=== PATIENT | female | born 1965 | race Caucasian/White ===

== ENCOUNTER → 2017-06-12 | Outpatient (CLI) | payer OTHER | LOC: BRMIMAGING 08:39 | PROVIDERS: ATTEND Family Medicine | DX: G89.18 Other acute postprocedural pain (principal); K76.0 Fatty (change of) liver, not elsewhere classified | CPT/HCPCS: 76705-PO ==

== ENCOUNTER 2017-08-20 11:53 | Inpatient (IN) | payer OTHER ==
[2017-08-20] MEDS ORDERED: ONDANSETRON 4 MG/2 ML VIAL IVP PRN (16:03)
[2017-08-20] MEDS ORDERED: PROMETHAZINE HCL 25 MG/ML INJ IVP PRN (16:03)
[2017-08-20] MEDS ORDERED: ONDANSETRON DISINTEGRATING 4 MG TAB PO PRN (16:03)
[2017-08-20] MEDS ORDERED: LORazepam 0.5 MG TAB PO PRN (16:03)
[2017-08-20] MEDS ORDERED: NS 1,000 ML IV SCH (16:15)
--- NOTE | 2017-08-20 17:29 | PDGENHP ---
History and Physical - Chief Complaint julieta - History of Present Illness 52 yo F with PMH of Grave's disease, copd versus RAD transferred here from [facility] where she was being worked up for JULIETA as well as new diagnosis of pna. Patient notes that she has been having issues with her health for about the last month. She was diagnosed as having "increased pressure" in her eyes and was started on prednisone eye drops and noted that since then she has been having pain in her hands, knees, thighs that she thought was related to the prednisone drops. Because of this she hastened her taper of prednisone, and was trying to taper it over one week instead of 2. She had been told by her opthomologist that the pressure had normalized at her last visit. Due to the pain in her eyes as well as her joints, she was taking ibuprofen up to 2400mg/ day for about the last 5 weeks. She also started valtrex for her eyes in the past several days. She also developed what she described as "hollowness" in her chest several days ago that was ultimately diagnosed as pneumonia yesterday and she was started on ctx/doxy at that time. She has been coughing a lot but not very productive overall. She has not had fever or chills. She has had an increase in her creatinine since admission at [facility] from 4.2 to > 5, and there is a plan for a renal biopsy. She has been making adequate urine. History Information - Allergies/Home Medication List Allergies/Adverse Reactions: erythromycin base [Erythromycin Base] Allergy (Intermediate, Verified 06/03/14 15:51) Vomiting Sulfa (Sulfonamide Antibiotics) Allergy (Intermediate, Verified 06/03/14 15:52) Hives Home Medications: Brimonidine/Timolol [Combigan (*)] 1 drop LEFTEYE BID 08/20/17 [Last Taken 08/20 10:00] Escitalopram Oxalate [Lexapro] 20 mg PO DAILY 08/20/17 [Last Taken 08/20/17] Levothyroxine Sodium [Tirosint] 150 mcg PO DAILY 08/20/17 [Last Taken 08/20/17] Vutk-Khko-Tvnn-Mag-Simet 5 ml PO QID PRN 08/20/17 [Last Taken 08/20/17] prednisoLONE ACET 1% [Pred Forte 1% (*)] 1 drops EACHEYE DAILY 08/20/17 [Last Taken 08/20/17 10:00] I have personally reviewed and updated: family history, medical history, social history, surgical history - Past Medical History COPD Additional medical history: grave's disease. hypothyroid - Surgical History Reports: cholecystectomy, spinal surgery (cervical fusion) Additional surgical history: breast reduction. liposuction - Family History Positive for: non-pertinent - Social History Smoking Status: Current some day smoker Alcohol Use: Occasionally Drug Use: None Additional social history: Review of Systems Review of Systems: ROS: 10pt was reviewed & negative except for what was stated in HPI & below Physical Exam Physical Exam: Temp Pulse Resp BP Pulse Ox 36.7 C 88 20 103/49 L 91 L 08/20/17 15:59 08/20/17 15:59 08/20/17 15:59 08/20/17 15:59 08/20/17 15:59 O2 (L/minute) 4 Constitutional: appears nourished, obese, uncomfortable Eyes: PERRL, anicteric sclera Ears, Nose, Mouth, Throat: moist mucous membranes, hearing normal Cardiovascular: regular rate and rhythym, no murmur, rub, or gallop, edema ( trace ble) Respiratory: expiratory wheeze, inspiratory crackles, bronchial breath sounds, rhonchi Gastrointestinal: normoactive bowel sounds, soft, non-tender abdomen Genitourinary: no bladder fullness Skin: warm, normal color Musculoskeletal: full muscle strength Neurologic: AAOx3 Psychiatric: interacting appropriately, not anxious, not encephalopathic Lab Data & Imaging Review Visualized and Interpreted Chest x-ray results: Yes Chest X-Ray results: infiltrate (bilateral nodular opacities--pna versus septic emobli versus metastatic dz) Assessment & Plan Assessment: 52 yo F presenting from OSH with JULIETA, not improving, as well as pna # julieta: with previously normal renal function, in setting of taking high doses of ibuprofen and valtrex and has been followed by nephrology both at [facility] and still here. They plan to get renal biopsy likely later this week. She does have protein/blood in urine. Urine output remains adequate. # increased ocular pressure: per patient thought to be due to viral illness, not due to glaucoma. Has been on a taper of opth prednisone, but tapering more quickly than she was supposed to. Eye symptoms have not recurred and she reports normalization of her ocular pressures prior to the taper. Will attempt to reach her opthamologist. # pna: patient with bilateral nodular pna on cxr, will get f/u ct for further evaluation, no culture data to guide therapy but will obtain further records from . CTX/azithro, sputum cultures, IS, nebs. # copd: without clear e/o acute exacerbation, will start scheduled nebs, prn albuterol # graves disease: patient reports recently normal TFT, will obtain records from [facility] to ensure this was checked # dispo: IP status, will need > 48 hours stay for eval/mgmt of above Patient new to my care. Old records reviewed and summarized as above. Care plan reviewed with renal including plans for likely biopsy this week.
[2017-08-20] MEDS ORDERED: ALBUTEROL 3 ML DEYVIAL IH PRN (17:35)
[2017-08-20] MEDS ORDERED: [UNRECOGNIZED DRUG - OTHER] PO PRN (17:35)
[2017-08-20] MEDS ORDERED: MBX SOLN 30 ML BOTTLE PO PRN (18:01)
[2017-08-20] MEDS: IPRATROPIUM/ALBUTEROL 3 ML DEYVIAL IH SCH ×2 (18:38→20:50)
[2017-08-20] MEDS: oxyCODONE IR 5 MG TAB PO PRN ×2 (20:23→23:47)
[2017-08-20] MEDS: HEPARIN 5,000 UNIT/0.5 ML SYR SC SCH (21:06)
[2017-08-20] MEDS: BRIMONIDINE/TIMOLOL 5 ML OPHT.BTL LEFTEYE SCH (21:07)
[2017-08-20] MEDS: ACETAMINOPHEN 325 MG TAB PO PRN (23:47)
[2017-08-21] MEDS: ACETAMINOPHEN 325 MG TAB PO PRN ×3 (04:50→13:36)
[2017-08-21] MEDS: oxyCODONE IR 5 MG TAB PO PRN ×3 (04:50→13:36)
[2017-08-21] MEDS: LEVOTHYROXINE SODIUM 150 MCG PO SCH (04:51)
[2017-08-21] MEDS: HEPARIN 5,000 UNIT/0.5 ML SYR SC SCH (04:52)
[2017-08-21 05:14] LABS: PLATELET COUNT 232 10^3/uL (150-400)
[2017-08-21] MEDS: IPRATROPIUM/ALBUTEROL 3 ML DEYVIAL IH SCH ×3 (05:42→17:36)
[2017-08-21] MEDS ORDERED: LEVOTHYROXINE 150 MCG TAB PO SCH (06:00)
[2017-08-21] MEDS: ESCITALOPRAM OXALATE 10 MG TAB PO SCH (08:56)
[2017-08-21] MEDS ORDERED: AZITHROMYCIN 250 MG TAB PO SCH (09:00)
[2017-08-21] MEDS ORDERED: AZITHROMYCIN IV 500 MG in D5W 250 ML IV SCH (09:00)
[2017-08-21] MEDS ORDERED: ENOXAPARIN 40 MG/0.4 ML SYR SC SCH (09:00)
--- NOTE | 2017-08-21 09:44 | PDMN ---
Medical Necessity Medical necessity: Patient meets INPT criteria per MD note and [facility] M-326 Renal Failure, Acute - (transferred from [facility] where she was being worked up for JULIETA and new onset pneumonia; Creat 5.7/BUN 73; elevated LFT's; had been on large doses of ibuprofen and valtrex x 5 weeks for joint pain and transitioning off prednisone for increased ocular pressure; anticipated LOS > 2 midnights for IV antibiotics, renal biopsy, further eval and treatment.)
--- NOTE | 2017-08-21 09:44 | PDMN ---
Medical Necessity Medical necessity: Patient meets INPT criteria per MD note and [facility] M-326 Renal Failure, Acute - (transferred from [facility] where she was being worked up for JULIETA and new onset pneumonia; Creat 5.7/BUN 73; elevated LFT's; had been on large doses of ibuprofen and valtrex x 5 weeks for joint pain and transitioning off prednisone for increased ocular pressure; anticipated LOS > 2 midnights for IV antibiotics, renal biopsy, further eval and treatment.)
--- NOTE | 2017-08-21 09:44 | PDMN ---
Medical Necessity Medical necessity: Patient meets INPT criteria per MD note and [facility] M-326 Renal Failure, Acute - (transferred from [facility] where she was being worked up for JULIETA and new onset pneumonia; Creat 5.7/BUN 73; elevated LFT's; had been on large doses of ibuprofen and valtrex x 5 weeks for joint pain and transitioning off prednisone for increased ocular pressure; anticipated LOS > 2 midnights for IV antibiotics, renal biopsy, further eval and treatment.)
[2017-08-21 10:47] LABS: HIV TYPE 1 AND 2 NEGATIVE (NEGATIVE)
--- NOTE | 2017-08-21 11:34 | SOAPPROG ---
SOAP Progress Note Assessment/Plan: Assessment: AKiI creatinine worsening proteinuria and hematuria increasing O2 requirements bilateral pulmonary infiltrates hemoptysis ANCA GBM ab and JAMIE are still pending, complements are normal, SPEP is negative Plan: Discussed with Pulm likely bronch and biopsy today if cant get tissue will proceed with kidney biopsy, counseled regarding riska and benefits, all questions answered per patient report she lost vision with steroid eye drops and will not take systemic steroids consider TPE will need temp HD cath 08/21/17 11:30 08/21/17 11:35 Subjective: feels pretty lousy today SOB worsening, no cp nausea or vomiting appetite not great last NSAIDS were SaturdayAug 17, was taking 800mg 4 times daily for several months Objective: Vital Signs Temp Pulse Resp BP Pulse Ox 36.5 C 78 18 119/63 93 08/21/17 07:49 08/21/17 07:49 08/21/17 05:44 08/21/17 07:49 08/21/17 07:49 Laboratory Results 08/21/17 04:43 08/21/17 04:43 08/20/17 08/21/17 08/22/17 05:59 05:59 05:59 Intake Total 1500 Balance 1500 - Time Spent With Patient Time Spent With Patient: 2.5 hours with patient and coordinating care - Pending Discharge Pending Discharge Within 24 Hours: No Pending Discharge Within 48 Hours: No Physical Exam - Physical Exam General Appearance: alert Respiratory: rales, rhonchi, wheezing, other (bilaterally) Cardiac/Chest: regular rate, rhythm, edema, No friction rub Abdomen: normal bowel sounds, non-tender, soft Skin: warm/dry, other (vasculitic looking lesion on left foot) Extremities: pedal edema Neuro/Psych: alert, oriented x 3
[2017-08-21] MEDS: BRIMONIDINE/TIMOLOL 5 ML OPHT.BTL LEFTEYE SCH (11:39)
[2017-08-21] MEDS: prednisoLONE ACET 1% 5 ML OPHT.BTL EACHEYE SCH (11:42)
--- NOTE | 2017-08-21 12:22 | ASMTCMCOM ---
CM Note CM Note Notes: Spoke w/RN, pt to have bronchoscopy and kidney biopsy today. Otherwise pt will be independent. Current DC Plan: Pt will dc home w/support of when medically stable, CM availble for any changes. Date Signed: 08/21/2017 12:22 PM Electronically Signed By:Radha Chahal RN
[2017-08-21] MEDS ORDERED: NS 1,200 ML IV SCH (12:24)
[2017-08-21] MEDS ORDERED: ALBUMIN 5% IV SCH (12:30)
[2017-08-21] MEDS ORDERED: SODIUM CITRATE 4% IV SCH ×2 (12:30)
[2017-08-21] MEDS ORDERED: NS IV SCH (13:00)
[2017-08-21] MEDS ORDERED: CALCIUM GLUCONATE IV SCH (13:00)
[2017-08-21] MEDS ORDERED: LIDOCAINE 2% JELLY 5 ML TUBE ONE ×2 (13:56→22:14)
[2017-08-21] MEDS ORDERED: LIDOCAINE 1% 300 MG/30 ML SDV ONE ×2 (13:56→22:14)
[2017-08-21] MEDS ORDERED: LIDOCAINE HCL 4% TOPICAL SOLN 50ML ONE (13:56)
[2017-08-21] MEDS ORDERED: MIDAZOLAM 2 MG/2 ML VIAL ONE (14:18)
[2017-08-21] MEDS ORDERED: fentaNYL 100 MCG/2 ML INJ ONE (14:19)
--- NOTE | 2017-08-21 15:08 | HOSPPROG ---
Hospitalist Progress Note Assessment/Plan: 52 yo F with PMH of Grave's disease, ? copd admitted here as a transfer from [facility] with JULIETA, anemia and pna versus other pulmonary process # julieta: with creatinine continuing to increase, initially attributed to nsaid use however given total lack of improvement and concurrent pna, anemia, generalized pain ? other process such as Clarice's. W/u at [facility] included spep, c3, c4, hep b/hep c ab which were all negative. Will add ANCA, JAMIE, anti- GBM, cryoglobulin, HIV here. Plan is for kidney biopsy likely today. Continue to renally dose meds, avoid nephrotoxins. No indication for HD at the moment. # pneumonia: with hemoptysis and unusual appearance on imaging, f/u CT yesterday personally reviewed and is notable for multilobar infiltrates. Discussed with pulmonary who will proceed with bronchoscopy today. Continue ctx/ azithro for now for possible multilobar CAP. # acute hypoxic respiratory failure: 2/2 above as well as likely atelectasis and difficulty clearing secretions, as above plan for bronch today, has required as much as 8L of o2 # anemia: continues to trend down and transfusing 2 u prbc today for hct < 21. Iron studies performed at [facility] notable for ferritin > 900 with slightly low iron and tibc. ? mixed picture but primarily appears more c/w anemia of chronic disease. Smear at [facility] was negative, and here showing elliptocytes but no schistos etc. # eye condition: unclear what the underlying condition was, per patient optho stated it was likely viral, she is on a opth pred taper, her eye pressures had normalized prior to beginning taper. Will attempt to reach her opthomologist. She has concerns about starting systemic steroids, but explained to her at length that her sxs are unlikely to be all to do with her opth steroid use and she seemed to understand this # hx of graves: with more recent hypothyroid, free t4 and tsh at [facility] were wnl, will continue op regimen # dispo: IP status, ultimate discharge is unclear at this time Discussed care plan with pulmonary as above. Subjective: no significant overnight events, patient currently feeling lousy, still with significant cough, coughing up scant amounts of blood, no fever, no change in urination Objective: Vital Signs Temp Pulse Resp BP Pulse Ox 36.3 C 88 18 101/57 L 93 11/01/17 13:12 08/21/17 14:25 08/21/17 14:25 08/21/17 13:12 08/21/17 14:25 Laboratory Results 08/21/17 04:43 08/21/17 04:43 08/20/17 08/21/17 08/22/17 05:59 05:59 05:59 Intake Total 1500 Balance 1500 awake alert ill appearing anicteric op clear rrr no mrg coarse bs, scattered rhonchi, scattered wheeze soft nt nd no cce warm dry well perfused oriented appropriate ICD10 Worksheet Patient Problems: Problems Problem Status Onset JULIETA (acute kidney injury) Acute
--- NOTE | 2017-08-21 15:08 | HOSPPROG ---
Hospitalist Progress Note Assessment/Plan: 52 yo F with PMH of Grave's disease, ? copd admitted here as a transfer from [facility] with JULIETA, anemia and pna versus other pulmonary process # julieta: with creatinine continuing to increase, initially attributed to nsaid use however given total lack of improvement and concurrent pna, anemia, generalized pain ? other process such as Clarice's. W/u at [facility] included spep, c3, c4, hep b/hep c ab which were all negative. Will add ANCA, JAMIE, anti- GBM, cryoglobulin, HIV here. Plan is for kidney biopsy likely today. Continue to renally dose meds, avoid nephrotoxins. No indication for HD at the moment. # pneumonia: with hemoptysis and unusual appearance on imaging, f/u CT yesterday personally reviewed and is notable for multilobar infiltrates. Discussed with pulmonary who will proceed with bronchoscopy today. Continue ctx/ azithro for now for possible multilobar CAP. # acute hypoxic respiratory failure: 2/2 above as well as likely atelectasis and difficulty clearing secretions, as above plan for bronch today, has required as much as 8L of o2 # anemia: continues to trend down and transfusing 2 u prbc today for hct < 21. Iron studies performed at [facility] notable for ferritin > 900 with slightly low iron and tibc. ? mixed picture but primarily appears more c/w anemia of chronic disease. Smear at [facility] was negative, and here showing elliptocytes but no schistos etc. # eye condition: unclear what the underlying condition was, per patient optho stated it was likely viral, she is on a opth pred taper, her eye pressures had normalized prior to beginning taper. Will attempt to reach her opthomologist. She has concerns about starting systemic steroids, but explained to her at length that her sxs are unlikely to be all to do with her opth steroid use and she seemed to understand this # hx of graves: with more recent hypothyroid, free t4 and tsh at [facility] were wnl, will continue op regimen # dispo: IP status, ultimate discharge is unclear at this time Discussed care plan with pulmonary as above. Subjective: no significant overnight events, patient currently feeling lousy, still with significant cough, coughing up scant amounts of blood, no fever, no change in urination Objective: Vital Signs Temp Pulse Resp BP Pulse Ox 36.3 C 88 18 101/57 L 93 11/01/17 13:12 08/21/17 14:25 08/21/17 14:25 08/21/17 13:12 08/21/17 14:25 Laboratory Results 08/21/17 04:43 08/21/17 04:43 08/20/17 08/21/17 08/22/17 05:59 05:59 05:59 Intake Total 1500 Balance 1500 awake alert ill appearing anicteric op clear rrr no mrg coarse bs, scattered rhonchi, scattered wheeze soft nt nd no cce warm dry well perfused oriented appropriate ICD10 Worksheet Patient Problems: Problems Problem Status Onset JULIETA (acute kidney injury) Acute
--- NOTE | 2017-08-21 15:08 | HOSPPROG ---
Hospitalist Progress Note Assessment/Plan: 52 yo F with PMH of Grave's disease, ? copd admitted here as a transfer from [facility] with JULIETA, anemia and pna versus other pulmonary process # julieta: with creatinine continuing to increase, initially attributed to nsaid use however given total lack of improvement and concurrent pna, anemia, generalized pain ? other process such as Clarice's. W/u at [facility] included spep, c3, c4, hep b/hep c ab which were all negative. Will add ANCA, JAMIE, anti- GBM, cryoglobulin, HIV here. Plan is for kidney biopsy likely today. Continue to renally dose meds, avoid nephrotoxins. No indication for HD at the moment. # pneumonia: with hemoptysis and unusual appearance on imaging, f/u CT yesterday personally reviewed and is notable for multilobar infiltrates. Discussed with pulmonary who will proceed with bronchoscopy today. Continue ctx/ azithro for now for possible multilobar CAP. # acute hypoxic respiratory failure: 2/2 above as well as likely atelectasis and difficulty clearing secretions, as above plan for bronch today, has required as much as 8L of o2 # anemia: continues to trend down and transfusing 2 u prbc today for hct < 21. Iron studies performed at [facility] notable for ferritin > 900 with slightly low iron and tibc. ? mixed picture but primarily appears more c/w anemia of chronic disease. Smear at [facility] was negative, and here showing elliptocytes but no schistos etc. # eye condition: unclear what the underlying condition was, per patient optho stated it was likely viral, she is on a opth pred taper, her eye pressures had normalized prior to beginning taper. Will attempt to reach her opthomologist. She has concerns about starting systemic steroids, but explained to her at length that her sxs are unlikely to be all to do with her opth steroid use and she seemed to understand this # hx of graves: with more recent hypothyroid, free t4 and tsh at [facility] were wnl, will continue op regimen # dispo: IP status, ultimate discharge is unclear at this time Discussed care plan with pulmonary as above. Subjective: no significant overnight events, patient currently feeling lousy, still with significant cough, coughing up scant amounts of blood, no fever, no change in urination Objective: Vital Signs Temp Pulse Resp BP Pulse Ox 36.3 C 88 18 101/57 L 93 11/01/17 13:12 08/21/17 14:25 08/21/17 14:25 08/21/17 13:12 08/21/17 14:25 Laboratory Results 08/21/17 04:43 08/21/17 04:43 08/20/17 08/21/17 08/22/17 05:59 05:59 05:59 Intake Total 1500 Balance 1500 awake alert ill appearing anicteric op clear rrr no mrg coarse bs, scattered rhonchi, scattered wheeze soft nt nd no cce warm dry well perfused oriented appropriate ICD10 Worksheet Patient Problems: Problems Problem Status Onset JULIETA (acute kidney injury) Acute
[2017-08-21] MEDS ORDERED: HEPARIN 50,000 UNIT/10 ML VIAL ONE (15:23)
[2017-08-21] MEDS ORDERED: MIDAZOLAM 10 MG/2 ML VIAL IVP ONE (15:41)
[2017-08-21] MEDS ORDERED: fentaNYL 100 MCG/2 ML INJ IVP ONE (15:41)
[2017-08-21] MEDS ORDERED: FUROSEMIDE 20 MG/2 ML VIAL IVP STA (19:05)
--- NOTE | 2017-08-21 19:20 | HOSPPROG ---
Hospitalist Progress Note Assessment/Plan: Called to pt's bedside due to acute respiratory failure. She is requiring 15L with face Mask. She was on 8 L previously. She has bronchoscopy today She has 2 units PRBC transfused She is confused She follows some commands BP has also dropped and is in the 90's She has been afebrile minimal urine output O: 89% 15 L O2, BP repeated 116/90, RR 26, Afebrile Altered mentation MMM Oropharynx clear +JVD Diffuse Rhonchi, decreased at bases, increased work of breathing RRR S/NT/ND no LE Edema Labs/studies reviewed #Acute Respiratory Failure #Hypotension #?Worsening Pneumonia, ?Sepsis #Anemia s/p transfusion #Acute Renal failure. Has been urinating well until this evening Plan: The etiology of the resp failure is likely due to volume from the transfusion, but cannot r/o worsening infection vs other. She has not had Leukocytosis, has been afebrile, and is on Rocephin and Azithromycin. As her BP is better now, while we are waiting for w/u per below, I will do a trial of Lasix 20mg IV x 1.Will order infectious w/u, CXR, BCxs, Procalcitonin (renal function noted), BNP. Will also order TTE. Pending results of if worsening hypotension, will consider changing abx BiPAP PRN, may need if no response to diuretics ICU transfer Pressors as needed total critical care time is 35 minutes Additional reccs pending w/u Objective: Vital Signs Temp Pulse Resp BP Pulse Ox 36.5 C 79 24 H 98/50 L 90 L 08/21/17 18:09 08/21/17 18:09 08/21/17 18:09 08/21/17 18:09 08/21/17 17:41 Laboratory Results 08/21/17 04:43 08/21/17 04:43 08/20/17 08/21/17 08/22/17 05:59 05:59 05:59 Intake Total 1500 1180 Output Total 150 Balance 1500 1030 ICD10 Worksheet Patient Problems: Problems Problem Status Onset JULIETA (acute kidney injury) Acute
[2017-08-21 19:44] LABS: PLATELET COUNT 254 10^3/uL (150-400)
[2017-08-21] MEDS ORDERED: FUROSEMIDE 20 MG/2 ML VIAL IVP ONE (21:00)
--- NOTE | 2017-08-21 22:08 | SOAPPROG ---
SOAP Progress Note Assessment/Plan: Assessment: CTSP tonight for worsening overall status. She presently has worsening respiratory failure. SBP 90 to 100, oliguric JULIETA, mixed resp and metabolic acidosis. She presently is on CPAP. Appears uncomfortable. I discussed with pulmonary; they are coming to assess and likely intubate. Reviewed history. She originally had what sounded to be an episcleritis, which developed here. She and her then traveled to [place]. While there, she also developed photophobia and arthralgias. She was taking a steroid eyedrop, and began taking high dose NSAIDs. They returned home, where she presented to [facility] on 08.18.17 with nausea, myalgias, arthralgias, oral ulcers, and non oliguric JULIETA. She was afeb and on room air. She had a Cr of 4.9, along with hematuria and proteinuria. Influenza rapid assay was negative. C' were normal, and hep seros were negative. Veronica was transferred to [facility] for insurance issues. She has shown progression of pulmonary infiltrates, progressively worsening resp failure, worsening anemia , and worsening renal failure. She has undergone CT scanning, transfusion, and bronchoscopy. She is making some urine. Her serologies are pending. Her platelet count is normal. Due to concerns of severe acute glaucoma with vision loss, steroids have been held to this point. Plan: -Stat Echo -Intubation -Fluids depending on pulm status, echo, and CVP -Dialysis depending on BP, acidosis (she will likely need in the 24 hours regardless) -Empiric Steroids -Ophthalmology consult in am -Await sero results -Renal Bx is stable -+/- pheresis -Discussed with pulmonary. We are going to have difficulty ventilating, and expect metabolic acidosis to worsen. Will initiate CRRT tonight. Will avoid heparin given pulmonary hemorrhage. SBP 100. No UF. 08/21/17 23:38 Subjective: Responds, dyspneic, labored Objective: Vital Signs Temp Pulse Resp BP Pulse Ox 36.5 C 79 24 H 98/50 L 90 L 08/21/17 18:09 08/21/17 18:09 08/21/17 18:09 08/21/17 18:09 08/21/17 17:41 Microbiology 08/21/17 15:00 Gram Stain - Final Lung Bilateral - Bronchial Washings Laboratory Results 08/21/17 19:30 08/21/17 19:30 08/20/17 08/21/17 08/22/17 05:59 05:59 05:59 Intake Total 1500 1180 Output Total 150 Balance 1500 1030 Physical Exam - Physical Exam General Appearance: other (sedated) EENT: ET tube Respiratory: other (coarse bs) Cardiac/Chest: regular rate, rhythm Abdomen: soft Skin: warm/dry Extremities: pedal edema Neuro/Psych: other (sedated) ICD10 Worksheet Patient Problems: Problems Problem Status Onset JULIETA (acute kidney injury) Acute
[2017-08-21] MEDS ORDERED: DEXMEDETOMIDINE/NS 4MCG/ML 100 ML BTL IV ONE (22:40)
[2017-08-21] MEDS ORDERED: NOREPINEPHRINE/NS 4 MG/500 ML BAG IV ONE (22:50)
[2017-08-21] MEDS: fentaNYL/NACL 100 ML IV SCH (23:30)
[2017-08-21] MEDS: PROPOFOL/EMULSION 100 ML IV SCH (23:30)
--- NOTE | 2017-08-21 23:56 | GCON ---
[f rep st] CONSULTATION PULMONARY CONSULTATION DATE OF CONSULTATION: 08/21/2017 HISTORY OF PRESENT ILLNESS: This patient is a 52-year-old female with a history of anxiety and obstr uctive sleep apnea, who originally was admitted to [facility] on 08/18/2017, complaining of diarr heal illness and generalized aches and pains. She had been taking quite a bit of nonsteroidal anti-i nflammatory medications because of this and was found to be in acute kidney injury at that time. She has also had difficulty with, what sounds to be, glaucoma and steroid eyedrops which have caused com plications of which I have heard at least 2 different stories. The patient herself said this caused nausea. There were some concerns about increasing intraocular pressure. When I spoke to her later in the day, he said that she was given steroid eyedrops because of increased intraocular press ure and this resulted in nausea. Subsequently, the patient is quite concerned about systemic cortico steroids. In any case, while she was at [facility], she was given IV fluids, which her creatinin e did fluctuate. It started at about 4.9 and continued to climb eventually. She was also found to h ave hematuria and proteinuria. During her hospital stay, her oxygen requirement increased and she was having episodes of hemoptysis. Eventually, a chest x-ray was performed that showed diffuse infiltrates. A procalcitonin was check ed and that was 0.4. She was subsequently transferred to [facility] for ins urance reasons. On arrival, she had a CT scan that showed diffuse bilateral infiltrates with a primarily apical predo minance without substantial adenopathy. She denies a history of connective tissue disease, although she did have a connective tissue disease workup in November of 2010 where an JAMIE, rheumatoid factor, CRP, HIV, p-ANCA, c-ANCA and SPEP were all negative. On her current hospitalization, hepatitis serol ogies were also negative. REVIEW OF SYSTEMS: Otherwise negative. PAST MEDICAL HISTORY: 1. Obstructive sleep apnea. 2. Anxiety. 3. Hypothyroid. 4. Mood disorder. 5. Plantar fasciitis. 6. Some elements of chronic kidney disease. PAST SURGICAL HISTORY: Cholecystectomy. She may have had foot surgery in the past. SOCIAL HISTORY: She has a 10-15 pack year smoking history and does smoke occasionally now with limit ed amounts of alcohol. She also admits to edible marijuana. FAMILY HISTORY: Some with leukemia, but no connective tissue diseases. CURRENT MEDICATIONS: 1. Albumin. 2. DuoNeb. 3. Zithromax. 4. Combigan. 5. Ceftriaxone. 6. Lexapro. 7. Subcu heparin. 8. Ativan. 9. Levothyroxine. 10. Zofran. 11. Oxycodone. 12. Pred Forte eye drops. 13. Phenergan. 14. Normal saline. PHYSICAL EXAMINATION: VITAL SIGNS: She has been afebrile with a blood pressure of 101/57, heart rat e of 78, respirations 18, oxygen saturation 92% on 8 L oxy mask. GENERAL: She was obese but alert, in no apparent distress. She was able to speak in full sentences without using accessory muscles for breathing. HEENT: She did appear to have bilateral proptosis, right greater than left, but her pup ils were otherwise round and reactive to light and nonicteric and noninjected. Mucous membranes appe ared to be dry with dried blood. Dentition was fine. NECK: Supple without adenopathy or jugular ve in distention. LUNGS: Breath sounds reveal bilateral rales, worse on the right than the left, but n o wheezing. HEART: Appeared to have a regular rate and rhythm without obvious murmurs, rubs or gall ops. ABDOMEN: Soft, nontender, nondistended without hepatosplenomegaly. EXTREMITIES: 1+ edema wilman aterally. There were also, what appeared to be, small petechiae on the dorsum of her right foot as w ell as at the anterior distal tibia on the left. These were nontender, non-blanchable, not scaly or raised in any way. She did complain of joint complaints in her bilateral hands and feet. NEUROLOGIC : Nonfocal. LABORATORY: Labs as described above. Her white count today is 6.4. Hematocrit is 20.7. Hemoglobin is 66. Platelets were normal at 232. Basic metabolic panel shows sodium of 142, potassium 4.7, chl oride 109, bicarb 18, BUN 73, creatinine 5.7. LFTs were elevated with an AST of 93, ALT 227, alkalin e phosphatase 350, total bilirubin 2.7, albumin of 2.7 as well. CRP of 239. Urinalysis showed 2+ protein, 3+ blood, 2+ leukocyte esterase, 25-50 red cells, 50-182 white cells. HIV is negative. Her CMP anchors are pending at this time. Anti-GBM antibodies are pending. Repeat JAMIE screen and cryoglobulins are also pending. ASSESSMENT/PLAN: 1. What appears to be a pulmonary renal disease, which would include a number of vasculitides includ ing anti-glomerular basement membrane disease or vasculitis such as Clarice's granulomatosis. I thin k that biopsy of tissue is certainly important at this time. Agreed to proceed with transbronchial l delaney biopsies and proceeding from there. She may eventually need systemic corticosteroids. With the vague complaints of abnormalities associated with that, I would be more in favor of a trial of steroi ds once we have a diagnosis. I believe there is some talk about plasma exchange as well as an altern ative, but I would favor steroids first. In terms of renal function, I would defer to the nephrologi st about appropriate timing of dialysis or plasma exchange. Because of ongoing hemoptysis, I think h er subcutaneous heparin should be discontinued in favor of mechanical sequential compression devices. 2. Hypoxemia. This is clearly related to her markedly abnormal CT scan. She should be given oxygen as needed to maintain a saturation of 90%. 3. Sleep apnea. She should use her home CPAP device in order to maintain control of that problem wh ile she is here in the hospital. /[id number]/MODL
--- NOTE | 2017-08-22 00:01 | PDINTPN ---
Clinical Services Consultant Progress Note Assessment/Plan: Assessment: Hypercapneic respiratory failure: Given steady worsening with unclear diagnosis and definitive therapy not yet started, will likely deteriorate further overnight. Acute Renal failure with metabolic acidosis Hypotension: SBP low 100s prior to intubation, but fell after intubation to SBP 80, Map 50s. Doesn't appear to be dry clinically Plan: Intubation Central line/dialysis catheter Start CVVHD to help with acidosis. Remove volume if tolerated. Consider plasmapheresis depending on clinical course, serologies, and Bx results. May need to proceed with renal Bx High-dose steroids IVF/pressors depending on CVP and BP Consider ID consult in AM Discussed with Dr. Lugo, Dr. Orozco, Pt, , RN, RT 105 minutes at bedside/ICU, exclusive of procedure, managing respiratory failure , hypotension 08/22/17 00:14 Subjective: CTSP at 9:30 PM due to respiratory failure, with adequate oxygenation but now requiring 100% O2, and persistent respiratory+metabolic acidosis despite BiPAP. The patient is tachypneic and appears to be tiring out, and she states that she is tiring out as well. Has some hemoptysis. Objective: Vital Signs Temp Pulse Resp BP Pulse Ox 37.4 C 82 45 H 117/50 L 100 08/21/17 22:00 08/21/17 22:00 08/21/17 22:00 08/21/17 22:00 08/21/17 22:00 Microbiology 08/21/17 15:00 Gram Stain - Final Lung Bilateral - Bronchial Washings Laboratory Results 08/21/17 19:30 08/21/17 19:30 08/20/17 08/21/17 08/22/17 05:59 05:59 05:59 Intake Total 1500 1180 Output Total 150 Balance 1500 1030 CXR: Markedly worsened diffuse bilateral alveolar infiltrates compared to . Images reviewed. Laboratory Tests 08/21/17 08/21/17 19:30 21:25 pCO2 42 H pO2 85 H Total CO2 18 L ABG pH 7.21 L ABG HCO3 16 L O2 Concentration % 90 Expiratory Pressure 5 Inspiratory Pressure 12 Mode BiPAP YES NT-Pro-B Natriuret Pep 660 H Procalcitonin 4.39 H Physical Exam - Physical Exam General Appearance: alert, moderate distress EENT: normal ENT inspection Neck: normal inspection Respiratory: respiratory distress, accessory muscle use Cardiac/Chest: regular rate, rhythm, edema (1+) Abdomen: normal bowel sounds, non-tender, soft Skin: normal color, warm/dry Extremities: normal inspection Neuro/Psych: alert, normal mood/affect, oriented x 3 ICD10 Worksheet Patient Problems: Problems Problem Status Onset JULIETA (acute kidney injury) Acute
[2017-08-22] MEDS ORDERED: PROPOFOL/EMULSION 1,000 MG/100 ML BOTTLE IV ONE (00:15)
[2017-08-22] MEDS ORDERED: fentanYL/NACL/100 ML BAG IV ONE (00:16)
--- NOTE | 2017-08-22 00:21 | GPN ---
[f rep st] PROCEDURE NOTE DATE OF PROCEDURE: 08/21/2017 Please note, the ProVation system is not available to me at this time for uncertain reasons. PROCEDURE PERFORMED: Bronchoscopy with transbronchial lung biopsies. INDICATION: Hemoptysis with an abnormal CT scan and acute renal failure. CONSENT: Informed consent was obtained from the patient prior to the administration of anesthesia. The risks and benefits of both the procedure as well as conscious sedation were explained in detail, and the patient agreed to proceed. ANESTHESIA: Conscious sedation was achieved using a total of 2 mg IV Versed, 25 mcg IV fentanyl. Augustine greenwood tolerated these well without obvious complication. PROCEDURE: After the application of topical lidocaine, the bronchoscope was passed into the orophary nx. Visualization was limited by excess soft tissue, though there was good visualization of the voca l cords eventually after suctioning a fair amount of blood. The vocal cords appeared to be normal wi th normal motion. The bronchoscope was then advanced into the trachea where there was also thin secr etions that were frankly bloody. The bloody secretions made evaluation of the mucous membranes diffi cult, but I was able to see gross structures fairly easily. The main jeffrey was sharp. There were n o obvious endobronchial lesions. I did explore the left upper lobe and left lower lobe, and there we re no obvious lesions there as well. I went to the right lower lobe. Again, no endobronchial lesion s or obvious mucosal abnormalities. Attention was then taken to the right upper lobe where transbron chial biopsies were performed using fluoroscopic guidance. Multiple specimens were taken from this r egion. The patient tolerated this well with maintaining her oxygen saturation at about 89% to 90%. There was no excessive additional bleeding found following these biopsies, and a post procedure fluor oscopic exam did not show any evidence of pneumothorax. Overall, the patient tolerated the procedure well, and the findings were discussed with the patient's in the patient's room immediately a fterward. /[id number]/MODL
[2017-08-22] MEDS ORDERED: BGK 4/2.5 PRISMASATE 5,000 ML DIAL SCH ×2 (00:30→01:00)
[2017-08-22] MEDS ORDERED: SODIUM CITRATE 4% 5 ML in SYRINGE 0 ML DIAL PRN (00:30)
[2017-08-22] MEDS ORDERED: PRE-DILUTION FILTER SET 100 ****SEND #2 INITIALLY MISC PRN (00:30)
[2017-08-22] MEDS: IPRATROPIUM/ALBUTEROL 3 ML DEYVIAL IH SCH (00:37)
[2017-08-22 00:56] LABS: PLATELET COUNT 327 10^3/uL (150-400)
[2017-08-22] MEDS: ACCESSORY DRAIN 1 EA BAG***SEND #2 INITIALLY MISC PRN ×2 (01:59→02:00)
[2017-08-22] MEDS: NOREPINEPHRINE BITARTRATE 16 MG in NS 250 ML IV SCH ×2 (02:03→16:22)
[2017-08-22] MEDS ORDERED: MIDAZOLAM 2 MG/2 ML VIAL IVP ONE ×2 (02:30→03:30)
[2017-08-22] MEDS ORDERED: fentaNYL 100 MCG/2 ML INJ IVP ONE (02:30)
--- NOTE | 2017-08-22 02:36 | GHP ---
[f rep st] HISTORY AND PHYSICAL DATE OF ADMISSION: 08/20/2017 PROCEDURE: Endotracheal intubation and flexible fiberoptic bronchoscopy. INDICATION FOR THE PROCEDURE: Acute respiratory failure. PROCEDURE NOTE: The risks and benefits of the procedure were explained to the patient and her mike d, who agreed to proceed. The entire procedure was performed in the intensive care unit with the pat iepelon under blood pressure, EKG and oximetry monitoring. Due to the emergent nature of the procedure, a negative pressure room was not available. After an appropriate time-out, a bite block was placed between the patient's teeth, and the bronchoscope was advanced through the bite block into the vocal cords, which moved normally. The bronchoscope was advanced through the vocal cords into the trachea, and a 7.5 endotracheal tube was advanced over the bronchoscope and secured in place in the distal tr achea. The patient was bagged, and her oxygen saturations stayed in the 90s. The bronchoscope was t hen advanced through the endotracheal tube again in appropriate position and the distal trachea was c onfirmed. There was thin blood throughout the trachea in proximal areas, which was easily suctioned. Examining the more distal areas, there was minimal bleeding. I performed a small volume lavage of the right upper lobe with mostly clear return. The bronchoscope was then removed. No specimens were sent. The patient received 100 mcg of fentanyl and 1 mg of Versed intravenously for analgesia and s edation. /[id number]/MODL
[2017-08-22] MEDS ORDERED: PETROLAT,WHT/MIN OIL/SOD CHL 3.5 GM OPHT.OINT ONE (03:08)
[2017-08-22] MEDS: PANTOPRAZOLE SODIUM 40 MG VIAL IVP SCH ×2 (03:24→09:45)
[2017-08-22] MEDS: PETROLAT,WHT/MIN OIL/SOD CHL 3.5 GM OPHT.OINT EACHEYE SCH ×3 (03:24→18:33)
[2017-08-22] MEDS: BRIMONIDINE/TIMOLOL 5 ML OPHT.BTL LEFTEYE SCH ×3 (03:24→21:54)
[2017-08-22] MEDS: ALBUTEROL 200 PUFFS/18 GM MDI IH SCH ×4 (04:19→17:10)
[2017-08-22 04:26] LABS: PLATELET COUNT 283 10^3/uL (150-400)
[2017-08-22 04:40] LABS: INR 1.43 (0.83-1.16); PROTIME(PATIENT) 17.4 SEC (12.0-15.0)
[2017-08-22] MEDS ORDERED: POTASSIUM Cl (KCl) 100 ML IV PRN (05:02)
[2017-08-22] MEDS ORDERED: WATER IV PRN (05:04)
[2017-08-22] MEDS ORDERED: MAGNESIUM SULF IV PRN (05:04)
[2017-08-22] MEDS ORDERED: K PHOS 20 MMOL in D5W 250 ML IV PRN (05:07)
[2017-08-22] MEDS: LEVOTHYROXINE SODIUM 150 MCG PO SCH (05:32)
--- NOTE | 2017-08-22 05:42 | GPN ---
[f rep st] PROCEDURE NOTE DATE OF PROCEDURE: 08/21/2017 ANESTHESIA: None. PREOPERATIVE DIAGNOSIS: Pulmonary renal syndrome requiring dialysis. POSTOPERATIVE DIAGNOSIS: Pulmonary renal syndrome requiring dialysis. PROCEDURE PERFORMED: Right ultrasound-guided temporary dialysis catheter placement. ESTIMATED BLOOD LOSS: 10 mL FINDINGS: Tip of the SVC. SPECIMENS: None. INDICATIONS: The patient is a 52-year-old woman, who is critically ill. She requires dialysis. DESCRIPTION OF PROCEDURE: Patient was in the ICU, she was intubated, she was placed in the Trendelen medina position. I used the ultrasound to access her right internal jugular vein. It took to thread the guidewire so that it threaded easily. I then made a pravin in the skin and performed ser ial dilations. Using the Seldinger technique, I then placed the dialysis catheter which I previously flushed with saline over the wire and removed the wire. Each port withdrew blood easily and was flu shed with saline. It was sutured into place. Sterile dressing was applied. Chest x-ray performed. /[id number]/MODL
--- NOTE | 2017-08-22 06:13 | GPN ---
[f rep st] PROCEDURE NOTE DATE OF PROCEDURE: 08/21/2017 ANESTHESIA: None. PREOPERATIVE DIAGNOSIS: instability. POSTOPERATIVE DIAGNOSIS: instability. PROCEDURE PERFORMED: Left ultrasound-guided triple-lumen catheter placement. ESTIMATED BLOOD LOSS: 10 cc. SPECIMENS: None. FINDINGS: Tip in the SVC. INDICATIONS: The patient is a 52-year-old woman, who is critically ill, hypotensive in the ICU. She requires pressors. I put in a dialysis catheter on her. DESCRIPTION OF PROCEDURE: The patient was in the ICU, she is intubated. I prepped her left neck, an d she was draped in the usual sterile fashion. I used the ultrasound to identify the left internal j ugular vein. I accessed this with a large bore needle with dark return of blood flow. I threaded th e guidewire and removed the needle. I made a small pravin in the skin. Using the Seldinger technique, I performed a dilation. I then passed the previously flushed catheter over the wire and removed the wire. Each port withdrew blood easily and was flushed with saline. The catheter was sutured into p lace. A sterile dressing applied. Chest x-ray showed the catheter in good position. /[id number]/MODL
[2017-08-22] MEDS: PROPOFOL/EMULSION 100 ML IV SCH ×3 (06:50→19:42)
[2017-08-22] MEDS ORDERED: CALCIUM CHLORIDE 5.7 GM in NS 1,000 ML IV SCH (07:00)
[2017-08-22] MEDS ORDERED: SODIUM PHOS 20 MM in D5W 250 ML IV PRN ×2 (07:00→09:00)
[2017-08-22] MEDS: HEPARIN 5,000 UNIT/0.5 ML SYR SC SCH (08:07)
[2017-08-22] MEDS: SODIUM CITRATE 4% 5 ML in SYRINGE 0 ML DIAL PRN (08:13)
[2017-08-22] MEDS: REPL FLUID TYPE D RXY 1 EA, SODIUM CITRATE 4% 375 ML, SODIUM Cl 3% 519 ML in WATER FOR ... DIAL SCH ×5 (08:14→22:13)
[2017-08-22] MEDS: B22GK4/0 PRISMASATE 5,000 ML DIAL SCH ×3 (08:14→21:13)
[2017-08-22] MEDS: methylPREDNISolone SOD SUCC 500 MG in D5W 100 ML IV SCH ×2 (08:18)
[2017-08-22] MEDS ORDERED: MAGNESIUM SULF 2 GM/WATER 50 ML IV PRN (09:00)
[2017-08-22] MEDS ORDERED: FAMOTIDINE 20 MG/NACL 50 ML IV SCH (09:00)
[2017-08-22] MEDS: CHLORHEXIDINE GLUCONATE 15 ML UDL PO SCH ×2 (09:18→19:45)
--- NOTE | 2017-08-22 09:24 | SOAPPROG ---
SOAP Progress Note Assessment/Plan: Assessment:Plan: ARF-pulmonary renal syndrome -ANCA 1:320 from [facility] labs with RI-3 of 560 -pulse steroids started -patient needs ophtho consulted to ensure we do not induce eye issues ( concern she had increased intraocular pressures recently) -start TPE today, typically 7 sessions over 2 weeks -daily exchanges x 3 with FFP due to pulmonary hemorrhage, then QOD -I have written for a total of 5 exchanges to cover the next 7 days -will need rituxan, but would wait until initial daily TPE performed -hepatitis B studies including core are negative from EGS -hep C ab negative -anti-GBM, JAMIE, C3C4 unremarkable -CRRT started for acidosis and ARF -patient on pressors -she is too sick to undergo renal biopsy, and given her clinical findings, I do not think her diagnosis is in question Pulmonary-on vent -100% -will stabilize her acid-base status over the next four hours, then perform TPE -resume CRRT once TPE completed -discussed with pulmonary 08/22/17 09:11 Subjective: intubated on vent and pressors Objective: Vital Signs Temp Pulse Resp BP Pulse Ox 37.1 C 66 34 H 126/48 H 97 08/22/17 08:00 08/22/17 08:21 08/22/17 08:21 08/22/17 08:00 08/22/17 08:21 Microbiology 08/21/17 15:00 Gram Stain - Final Lung Bilateral - Bronchial Washings Laboratory Results 08/22/17 04:00 08/22/17 04:00 08/21/17 08/22/17 08/23/17 05:59 05:59 05:59 Intake Total 1500 2790 Output Total 700 75 Balance 1500 2090 -75 PT 17.4 SEC (12.0-15.0) H 08/22/17 04:00 INR 1.43 (0.83-1.16) H 08/22/17 04:00 Physical Exam - Physical Exam General Appearance: no apparent distress, obtunded EENT: ET tube Neck: normal inspection Respiratory: other (coarse breath sounds) Cardiac/Chest: regular rate, rhythm, No diastolic murmur, No systolic murmur Abdomen: soft, distended, No normal bowel sounds Skin: warm/dry, rash Extremities: No swelling ICD10 Worksheet Patient Problems: Problems Problem Status Onset JULIETA (acute kidney injury) Acute
[2017-08-22] MEDS: prednisoLONE ACET 1% 5 ML OPHT.BTL EACHEYE SCH (09:43)
[2017-08-22] MEDS: PIPERACILLIN/TAZO 2.25 GM/DEX 50 ML IV SCH ×3 (09:57→22:29)
--- NOTE | 2017-08-22 11:28 | SOAPPROG ---
SOAP Progress Note Assessment/Plan: Assessment:Plan: Stable on CRRT FiO2 down to 90% Discussed in detail with Blood bank aware of FFP orders for TPE Care coordinated with dialysis staff. 08/22/17 11:27 Objective: Vital Signs Temp Pulse Resp BP Pulse Ox 36.5 C 63 37 H 138/60 H 94 08/22/17 11:00 08/22/17 11:00 08/22/17 11:00 08/22/17 11:00 08/22/17 11:00 Microbiology 08/21/17 15:00 Gram Stain - Final Lung Bilateral - Bronchial Washings Laboratory Results 08/22/17 04:00 08/22/17 04:00 08/21/17 08/22/17 08/23/17 05:59 05:59 05:59 Intake Total 1500 2790 Output Total 700 75 Balance 1500 2090 -75 PT 17.4 SEC (12.0-15.0) H 08/22/17 04:00 INR 1.43 (0.83-1.16) H 08/22/17 04:00 ICD10 Worksheet Patient Problems: Problems Problem Status Onset JULIETA (acute kidney injury) Acute
--- NOTE | 2017-08-22 11:52 | HOSPPROG ---
Hospitalist Progress Note Assessment/Plan: # acute respiratory failure - s/p bronch with bx's yesterday - intubated, cont vent support - zosyn started, cont for now # shock on two pressors - not clearly sepsis - follow closely # granulomatosis with polyangiitis - causing resp failure and renal failure - steroids, TPE per renal, rituxan # acute renal failure - now on CRRT # anemia s/p transfusion # concern for glaucoma/increased intraocular pressures - needs ophtho consult # hx Graves/hypothyroid - synthroid 45 mins cc time Subjective: emergently intubated overnight; CRRT started Objective: Vital Signs Temp Pulse Resp BP Pulse Ox 36.5 C 61 36 H 138/60 H 95 08/22/17 11:00 08/22/17 11:22 08/22/17 11:22 08/22/17 11:00 08/22/17 11:22 Microbiology 08/21/17 15:00 Gram Stain - Final Lung Bilateral - Bronchial Washings Laboratory Results 08/22/17 04:00 08/22/17 04:00 08/21/17 08/22/17 08/23/17 05:59 05:59 05:59 Intake Total 1500 2790 Output Total 700 75 Balance 1500 2090 -75 PT 17.4 SEC (12.0-15.0) H 08/22/17 04:00 INR 1.43 (0.83-1.16) H 08/22/17 04:00 35 mins of critical care time - Physical Exam Constitutional: no apparent distress, appears nourished Ears, Nose, Mouth, Throat: other (ET tube) Cardiovascular: regular rate and rhythym, no murmur, rub, or gallop Respiratory: inspiratory crackles, No reduced air movement, No expiratory wheeze , No bronchial breath sounds Gastrointestinal: normoactive bowel sounds, soft, non-tender abdomen, no palpable masses Genitourinary: tapia in urethra ICD10 Worksheet Patient Problems: Problems Problem Status Onset JULIETA (acute kidney injury) Acute
[2017-08-22] MEDS: ESCITALOPRAM OXALATE 10 MG TAB PO SCH (12:17)
[2017-08-22] MEDS: VASOPRESSIN/DEXTROSE 250 ML IV SCH (13:31)
[2017-08-22] MEDS: SODIUM CITRATE 4% IV SCH ×2 (14:29→18:00)
[2017-08-22] MEDS: NS IV SCH (14:29)
[2017-08-22] MEDS: CALCIUM GLUCONATE IV SCH (14:29)
[2017-08-22] MEDS: NS 1,000 ML MISC SCH ×3 (14:29→21:51)
--- NOTE | 2017-08-22 16:03 | PDINTPN ---
Pharmacy Benefit Manager Progress Note Assessment/Plan: Assessment/plan: 52 F initially admitted to [facility] with diffuse joint complaints, hemoptysis and fatigue, found to have JULIETA thought to be 2/2 excessive NSAID use. Her UA showed proteinuria and hematuria, but she did not respond to IVF band developed increasing O2 requirements, and a CXR showing significant infiltrates. She was transferred to [facility] 2/2 insurance issues where a chest CT revealed severe, diffuse consolidation with upper lobe predominance. In addition, she had several tiny petechiae lesions on her bilateral lower extremities, as well as an area of superficial ulceration on the medial aspect of her left great toe. While serologies were pending, there was significant concern about vasculitis, so a transbronchial biopsy was performed on 08/21. This showed significant pulmonary hemorrhage (prior to biopsy), and she subsequently developed severe respiratory failure with refractory hypoxemia, necessitating emergent intubation. Empiric high dose steroids were started and lines were placed to allow BP support (she became severely hypotensive following intubation) and access for both CRRT and planned plasma exchange. 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 I agree with 500 mg solumedrol for the next three days in addition to TPE as outlined by renal. After third day would advocate for rituxan followed by transition of steroid dose to 1 mg/kg/day. * Respiratory failure with pulmonary hemorrhage and severe hypoxemia. Her current vent status is reasonable though indicative of high level support. I dont feel prone ventilation is required at this time and hope to wean FiO2 down from 100% over the course of the day. Keep peep at 10 for now and use AC (no SIMV). She is relatively comfortable at these settings, so additional sedation is not required at this time. No evidence of infection at this point in her lungs, no PTX post biopsy. While her infiltrates are severe and her P/F ratio is low, I would prefer to keep her TV at its current setting until her acid base status is improved. Her IBW would advocate for 360 ml TV (6 ml/kg) FADUMO. Check ABG/CXR in AM. In the absence of asthma or COPD, scheduled beta agonists are not necessary. * Hypotension- likely related to acid base, ventilator, JULIETA. No evidence of septic or cardiogenic shock and doubt adrenal insufficiency. Her procalcitonin level was low at [facility], though increased acutely after her emergent intubation. Zosyn added empirically. Continue with norepi and vasopressin targeting MAP > 65. Wean Norepi before vaso. Keep volume status even on CRRT. * JULIETA related to AAV as above. Planning CRRT with intermittent TPE to improve acid base status. She continues to have moderate UOP * Glaucoma?- here eye issues are quite unclear to me, and agree with ophthalmology consult * Transaminitis- mild but improving with pressor support. Hep serologies negative. * ICU prophylaxis should consist of SCDs and PPI * * critical care time 75 minutes in severely ill patient with multiorgan failure. Cased reviewed extensively with multiple consultants, family, and hourly sales staff Subjective: Events overnight reviewed Objective: Vital Signs Temp Pulse Resp BP Pulse Ox 37.3 C 70 35 H 133/51 H 96 08/22/17 15:00 08/22/17 15:00 08/22/17 15:00 08/22/17 15:00 08/22/17 15:00 Microbiology 08/21/17 15:00 Gram Stain - Final Lung Bilateral - Bronchial Washings 08/21/17 15:00 Mycobacterial Smear (DEVIN) - Final Lung Bilateral - Bronchial Washings Laboratory Results 08/22/17 04:00 08/22/17 12:30 08/21/17 08/22/17 08/23/17 05:59 05:59 05:59 Intake Total 1500 2790 456 Output Total 700 120 Balance 1500 2090 336 PT 17.4 SEC (12.0-15.0) H 08/22/17 04:00 INR 1.43 (0.83-1.16) H 08/22/17 04:00 Physical Exam - Physical Exam General Appearance: no apparent distress EENT: PERRL/EOMI, ET tube, other (proptosis) Neck: supple Respiratory: rhonchi, No respiratory distress, No accessory muscle use Cardiac/Chest: regular rate, rhythm, No edema Abdomen: non-tender, soft, No distended Skin: warm/dry, other (petechial lesions of bilateral LE. superficial ulceration of left great toe), No cyanosis Lymphatic: no adenopathy Extremities: No pedal edema Neuro/Psych: cognition abnormalities ICD10 Worksheet Patient Problems: Problems Problem Status Onset JULIETA (acute kidney injury) Acute
--- NOTE | 2017-08-22 16:03 | PDINTPN ---
Director Women Progress Note Assessment/Plan: Assessment/plan: 52 F initially admitted to [facility] with diffuse joint complaints, hemoptysis and fatigue, found to have JULIETA thought to be 2/2 excessive NSAID use. Her UA showed proteinuria and hematuria, but she did not respond to IVF band developed increasing O2 requirements, and a CXR showing significant infiltrates. She was transferred to [facility] 2/2 insurance issues where a chest CT revealed severe, diffuse consolidation with upper lobe predominance. In addition, she had several tiny petechiae lesions on her bilateral lower extremities, as well as an area of superficial ulceration on the medial aspect of her left great toe. While serologies were pending, there was significant concern about vasculitis, so a transbronchial biopsy was performed on 08/21. This showed significant pulmonary hemorrhage (prior to biopsy), and she subsequently developed severe respiratory failure with refractory hypoxemia, necessitating emergent intubation. Empiric high dose steroids were started and lines were placed to allow BP support (she became severely hypotensive following intubation) and access for both CRRT and planned plasma exchange. 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 I agree with 500 mg solumedrol for the next three days in addition to TPE as outlined by renal. After third day would advocate for rituxan followed by transition of steroid dose to 1 mg/kg/day. * Respiratory failure with pulmonary hemorrhage and severe hypoxemia. Her current vent status is reasonable though indicative of high level support. I dont feel prone ventilation is required at this time and hope to wean FiO2 down from 100% over the course of the day. Keep peep at 10 for now and use AC (no SIMV). She is relatively comfortable at these settings, so additional sedation is not required at this time. No evidence of infection at this point in her lungs, no PTX post biopsy. While her infiltrates are severe and her P/F ratio is low, I would prefer to keep her TV at its current setting until her acid base status is improved. Her IBW would advocate for 360 ml TV (6 ml/kg) FADUMO. Check ABG/CXR in AM. In the absence of asthma or COPD, scheduled beta agonists are not necessary. * Hypotension- likely related to acid base, ventilator, JULIETA. No evidence of septic or cardiogenic shock and doubt adrenal insufficiency. Her procalcitonin level was low at [facility], though increased acutely after her emergent intubation. Zosyn added empirically. Continue with norepi and vasopressin targeting MAP > 65. Wean Norepi before vaso. Keep volume status even on CRRT. * JULIETA related to AAV as above. Planning CRRT with intermittent TPE to improve acid base status. She continues to have moderate UOP * Glaucoma?- here eye issues are quite unclear to me, and agree with ophthalmology consult * Transaminitis- mild but improving with pressor support. Hep serologies negative. * ICU prophylaxis should consist of SCDs and PPI * * critical care time 75 minutes in severely ill patient with multiorgan failure. Cased reviewed extensively with multiple consultants, family, and balance staff inspector Subjective: Events overnight reviewed Objective: Vital Signs Temp Pulse Resp BP Pulse Ox 37.3 C 70 35 H 133/51 H 96 08/22/17 15:00 08/22/17 15:00 08/22/17 15:00 08/22/17 15:00 08/22/17 15:00 Microbiology 08/21/17 15:00 Gram Stain - Final Lung Bilateral - Bronchial Washings 08/21/17 15:00 Mycobacterial Smear (DEVIN) - Final Lung Bilateral - Bronchial Washings Laboratory Results 08/22/17 04:00 08/22/17 12:30 08/21/17 08/22/17 08/23/17 05:59 05:59 05:59 Intake Total 1500 2790 456 Output Total 700 120 Balance 1500 2090 336 PT 17.4 SEC (12.0-15.0) H 08/22/17 04:00 INR 1.43 (0.83-1.16) H 08/22/17 04:00 Physical Exam - Physical Exam General Appearance: no apparent distress EENT: PERRL/EOMI, ET tube, other (proptosis) Neck: supple Respiratory: rhonchi, No respiratory distress, No accessory muscle use Cardiac/Chest: regular rate, rhythm, No edema Abdomen: non-tender, soft, No distended Skin: warm/dry, other (petechial lesions of bilateral LE. superficial ulceration of left great toe), No cyanosis Lymphatic: no adenopathy Extremities: No pedal edema Neuro/Psych: cognition abnormalities ICD10 Worksheet Patient Problems: Problems Problem Status Onset JULIETA (acute kidney injury) Acute
--- NOTE | 2017-08-22 16:03 | PDINTPN ---
Chief Vendor Quality Progress Note Assessment/Plan: Assessment/plan: 52 F initially admitted to [facility] with diffuse joint complaints, hemoptysis and fatigue, found to have JULIETA thought to be 2/2 excessive NSAID use. Her UA showed proteinuria and hematuria, but she did not respond to IVF band developed increasing O2 requirements, and a CXR showing significant infiltrates. She was transferred to [facility] 2/2 insurance issues where a chest CT revealed severe, diffuse consolidation with upper lobe predominance. In addition, she had several tiny petechiae lesions on her bilateral lower extremities, as well as an area of superficial ulceration on the medial aspect of her left great toe. While serologies were pending, there was significant concern about vasculitis, so a transbronchial biopsy was performed on 08/21. This showed significant pulmonary hemorrhage (prior to biopsy), and she subsequently developed severe respiratory failure with refractory hypoxemia, necessitating emergent intubation. Empiric high dose steroids were started and lines were placed to allow BP support (she became severely hypotensive following intubation) and access for both CRRT and planned plasma exchange. 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 I agree with 500 mg solumedrol for the next three days in addition to TPE as outlined by renal. After third day would advocate for rituxan followed by transition of steroid dose to 1 mg/kg/day. * Respiratory failure with pulmonary hemorrhage and severe hypoxemia. Her current vent status is reasonable though indicative of high level support. I dont feel prone ventilation is required at this time and hope to wean FiO2 down from 100% over the course of the day. Keep peep at 10 for now and use AC (no SIMV). She is relatively comfortable at these settings, so additional sedation is not required at this time. No evidence of infection at this point in her lungs, no PTX post biopsy. While her infiltrates are severe and her P/F ratio is low, I would prefer to keep her TV at its current setting until her acid base status is improved. Her IBW would advocate for 360 ml TV (6 ml/kg) FADUMO. Check ABG/CXR in AM. In the absence of asthma or COPD, scheduled beta agonists are not necessary. * Hypotension- likely related to acid base, ventilator, JULIETA. No evidence of septic or cardiogenic shock and doubt adrenal insufficiency. Her procalcitonin level was low at [facility], though increased acutely after her emergent intubation. Zosyn added empirically. Continue with norepi and vasopressin targeting MAP > 65. Wean Norepi before vaso. Keep volume status even on CRRT. * JULIETA related to AAV as above. Planning CRRT with intermittent TPE to improve acid base status. She continues to have moderate UOP * Glaucoma?- here eye issues are quite unclear to me, and agree with ophthalmology consult * Transaminitis- mild but improving with pressor support. Hep serologies negative. * ICU prophylaxis should consist of SCDs and PPI * * critical care time 75 minutes in severely ill patient with multiorgan failure. Cased reviewed extensively with multiple consultants, family, and medical staff manager Subjective: Events overnight reviewed Objective: Vital Signs Temp Pulse Resp BP Pulse Ox 37.3 C 70 35 H 133/51 H 96 08/22/17 15:00 08/22/17 15:00 08/22/17 15:00 08/22/17 15:00 08/22/17 15:00 Microbiology 08/21/17 15:00 Gram Stain - Final Lung Bilateral - Bronchial Washings 08/21/17 15:00 Mycobacterial Smear (DEVIN) - Final Lung Bilateral - Bronchial Washings Laboratory Results 08/22/17 04:00 08/22/17 12:30 08/21/17 08/22/17 08/23/17 05:59 05:59 05:59 Intake Total 1500 2790 456 Output Total 700 120 Balance 1500 2090 336 PT 17.4 SEC (12.0-15.0) H 08/22/17 04:00 INR 1.43 (0.83-1.16) H 08/22/17 04:00 Physical Exam - Physical Exam General Appearance: no apparent distress EENT: PERRL/EOMI, ET tube, other (proptosis) Neck: supple Respiratory: rhonchi, No respiratory distress, No accessory muscle use Cardiac/Chest: regular rate, rhythm, No edema Abdomen: non-tender, soft, No distended Skin: warm/dry, other (petechial lesions of bilateral LE. superficial ulceration of left great toe), No cyanosis Lymphatic: no adenopathy Extremities: No pedal edema Neuro/Psych: cognition abnormalities ICD10 Worksheet Patient Problems: Problems Problem Status Onset JULIETA (acute kidney injury) Acute
--- NOTE | 2017-08-22 16:42 | ASMTCMCOM ---
CM Note CM Note Notes: Patient status reviewed in rounds. She is intubated and on FRONT END TECHNICIAN for renal injury. Needs to be determined. CM to follow. Date Signed: 08/22/2017 04:41 PM Electronically Signed By:Lexie Boyd RN
--- NOTE | 2017-08-22 16:42 | ASMTCMCOM ---
CM Note CM Note Notes: Patient status reviewed in rounds. She is intubated and on HAND STRAIGHTENER for renal injury. Needs to be determined. CM to follow. Date Signed: 08/22/2017 04:41 PM Electronically Signed By:Lexie Byod RN
--- NOTE | 2017-08-22 16:42 | ASMTCMCOM ---
CM Note CM Note Notes: Patient status reviewed in rounds. She is intubated and on RAIL CAR REPAIRMAN for renal injury. Needs to be determined. CM to follow. Date Signed: 08/22/2017 04:41 PM Electronically Signed By:Lexie Boyd RN
[2017-08-22] MEDS ORDERED: ACETAMINOPHEN 650 MG/20.3 ML UDCUP TUBE PRN (17:12)
[2017-08-22] MEDS ORDERED: LORazepam 0.5 MG TAB TUBE PRN (17:30)
[2017-08-22] MEDS ORDERED: oxyCODONE IR 5 MG TAB TUBE PRN (17:30)
[2017-08-22] MEDS: POTASSIUM Cl (KCl) 50 ML IV PRN (18:38)
[2017-08-22] MEDS ORDERED: PIPERACILLIN/TAZO 3.375 GM/DEX 50 ML IV SCH (21:45)
[2017-08-23] MEDS: REPL FLUID TYPE D CAPS 1 EA in WATER FOR INJECTION,STERILE 4,000 ML DIAL SCH ×2 (01:25→04:51)
[2017-08-23] MEDS: B22GK4/0 PRISMASATE 5,000 ML DIAL SCH (01:45)
[2017-08-23] MEDS: PROPOFOL/EMULSION 100 ML IV SCH ×2 (02:27→18:02)
[2017-08-23] MEDS: PETROLAT,WHT/MIN OIL/SOD CHL 3.5 GM OPHT.OINT EACHEYE SCH ×4 (03:23→18:04)
[2017-08-23 04:32] LABS: PLATELET COUNT 171 10^3/uL (150-400)
[2017-08-23] MEDS: fentaNYL/NACL 100 ML IV SCH (04:51)
[2017-08-23] MEDS ORDERED: ALBUMIN 5% 500 ML BOTTLE IV ONE (05:22)
--- NOTE | 2017-08-23 05:43 | EDPHY ---
Inpatient Procedure Narrative: CODE BLUE. I was called to a Arlene De La Torre in the ICU. This patient is a 52-year-old female in the intensive care unit for respiratory failure pulmonary hemorrhage, ANCA Vasculitis, with an acute kidney injury undergoing CRRT. Arleen de la torre was called by nursing staff for hypoxic cardiopulmonary arrest. The patient is undergoing SORTING AND FOLDING SUPERVISOR and has extensive pulmonary infiltrates. And having a hard time oxygenating the patient. Pulse ox when I arrived in the room was 50 % being bagged. She was undergoing CPR ACLS protocol. She received 1 mg epi, 1 amp of calcium, 2 amps of bicarb. After short course of CPR the patient regained a pulse and had an organized rhythm on the monitor. At this time she is intubated, sedated, in Critical condition with extensive pulmonary infiltrates. She is having increasing oxygen requirement. I spent a total of 20 minutes in her room as she was undergoing CPR. Notify Dr. Dane Mcclure who is on-call for pulmonology to help with ventilation settings in the setting of ARDS. Critical Care: Total Critical Care Time Spent Managing this Patient: 20 Minutes. This time was spent Exclusively with this patient. This Care was exclusive of procedures. The Organ System/life at risk was cardiopulmonary arrest This Patient was in Critical Condition because profound hypoxia. Final diagnosis cardiopulmonary arrest Final diagnosis respiratory failure Final diagnosis severe hypoxia with ARDS
[2017-08-23] MEDS: SODIUM CITRATE 4% 5 ML in SYRINGE 0 ML DIAL PRN ×2 (05:47→05:49)
[2017-08-23] MEDS ORDERED: LEVOTHYROXINE SODIUM 150 MCG TUBE SCH (06:00)
[2017-08-23] MEDS ORDERED: ALBUMIN 5% 500 ML IV ONE (06:30)
[2017-08-23] MEDS: PIPERACILLIN/TAZO 2.25 GM/DEX 50 ML IV SCH ×2 (06:50→13:08)
[2017-08-23] MEDS: CHLORHEXIDINE GLUCONATE 15 ML UDL PO SCH (07:45)
[2017-08-23] MEDS ORDERED: SODIUM BICARBONATE 50 MEQ/50 ML SYR ONE ×3 (07:55→12:35)
[2017-08-23] MEDS ORDERED: ACETYLCYSTEINE 20% IH/PO 4 ML VIAL ONE (07:56)
[2017-08-23] MEDS ORDERED: LIDOCAINE 1% 300 MG/30 ML SDV MISC ONE (08:00)
[2017-08-23] MEDS ORDERED: ACETYLCYSTEINE 10% IH/PO 4 ML VIAL IH ONE (08:00)
[2017-08-23] MEDS ORDERED: LIDOCAINE 2% JELLY 5 ML TUBE TP ONE ×2 (08:00→12:15)
[2017-08-23] MEDS ORDERED: ACETYLCYSTEINE 20% IH/PO 4 ML VIAL IH ONE ×2 (08:00→12:15)
[2017-08-23 08:04] LABS: INR 1.87 (0.83-1.16); PROTIME(PATIENT) 21.6 SEC (12.0-15.0)
[2017-08-23] MEDS ORDERED: SODIUM BICARBONATE 50 MEQ/50 ML SYR IVP ONE (08:09)
[2017-08-23] MEDS ORDERED: LIDOCAINE 2% JELLY 5 ML TUBE ONE (08:11)
[2017-08-23] MEDS ORDERED: LIDOCAINE 1% 300 MG/30 ML SDV ONE ×2 (08:12→09:30)
[2017-08-23] MEDS ORDERED: NA BICARBONATE 50 MEQ/50 ML VIAL ONE ×2 (08:12→12:36)
--- NOTE | 2017-08-23 08:18 | SOAPPROG ---
SOAP Progress Note Assessment/Plan: Assessment:Plan: ARF-unstable -PEA arrest last night/early this morning -labs prior with electrolytes and acid base status under control on CRRT -system clotting frequently, but metabolic balance being attained with staff setting up new systems as needed -will continue this procedure -suspect clotting will decrease if her acute inflammatory state responds to treatment Pulmonary renal syndrome-+ ANCA -steroids increased by pulmonary -for bronch today -CRRT prior to TPE to ensure chemistries are stable prior to plasma exchange Heme-decreased Hct -transfusion ordered -could be related to ongoing hemorrhage or blood loss via clotting of dialysis filters -each system results in approximately 200ml blood loss Hypermag-repeat Mag pending Hyperkalemia-just notified that most recent lab with increased K and decreased bicarb -bicarb ordered -CRRT to start immediately -await result of ABG to see if worsening pH from ventilatory failure is driving K balance 08/23/17 08:19 Subjective: intubated on vent and pressors Objective: Vital Signs Temp Pulse Resp BP Pulse Ox 37.1 C 120 H 42 H 107/90 H 78 L 08/23/17 06:00 08/23/17 06:00 08/23/17 06:00 08/23/17 06:00 08/23/17 06:00 Microbiology 08/21/17 15:00 Gram Stain - Final Lung Bilateral - Bronchial Washings 08/21/17 15:00 Mycobacterial Smear (DEVIN) - Final Lung Bilateral - Bronchial Washings Laboratory Results 08/23/17 07:40 08/22/17 08/23/17 08/24/17 05:59 05:59 05:59 Intake Total 2790 4290.5 Output Total 700 981 Balance 2090 3309.5 PT 21.6 SEC (12.0-15.0) H 08/23/17 07:40 INR 1.87 (0.83-1.16) H 08/23/17 07:40 Physical Exam - Physical Exam General Appearance: obtunded EENT: ET tube Neck: normal inspection Respiratory: other (coarse breath sounds) Cardiac/Chest: tachycardia, No systolic murmur, No friction rub Abdomen: distended, No normal bowel sounds Skin: rash Extremities: swelling ICD10 Worksheet Patient Problems: Problems Problem Status Onset JULIETA (acute kidney injury) Acute
--- NOTE | 2017-08-23 08:21 | ECHO ---
[email or web address] [address] [address] Main: [phone] Fax: Transthoracic Echocardiogram Name: MENG CODY MR#: [id number] Study Date: 08/21/2017 Study Time: 09:48 PM Date of : 1965 Age: 52 year(s) Height: 165.1 cm (65 in.) Weight: 84.82 kg (187 lb.) BSA: 1.92 m2 Gender: Female Examination: Echo Indication: CHF/ On bipap 106 Image Quality: Contrast: Requested by: Marcel Aleman BP: 106 mmHg/41 mmHg Heart Rate: Rhythm: Indication: CHF/ On bipap Procedure Staff Marzipan Maker: Mary Hopkins Reading Physician: Blayne Wood Requesting Provider: Conclusions: Normal left ventricular size and systolic function. LVEF 65-70%. Normal left ventricular wall motion. Normal appearing valvular structures. Grossly normal valvular structures. No significant valvular stenosis or insufficiency. No pericardial effusion. Measurements: Chambers Valvular Assessment AV/MV Valvular Assessment TV/PV Normal Normal Normal Name Value Range Name Value Range Name Value Range Ao Alicai (MM): 2.9 cm (2.2 cm-3.7 AV meanP mmHg ( - ) TR Vmax: 3.20 mm/s ( - ) cm) MV E Vmax: 0.83 m/s ( - ) TR PGmax: 41 mmHg ( - ) IVSd (2D): 0.9 cm (0.6 cm-1.1 MV A Vmax: 0.67 m/s ( - ) syst. PAP: 46 mmHg ( - ) cm) MV E/A: 1.24 ( - ) LVDd (2D): 4.8 cm (3.9 cm-5.3 cm) LVDs (2D): 3.0 cm (2.1 cm-4 cm) LVPWd (2D): 1.0 cm ( - ) LVEF (2D): 67 (>=54 %) Continued Measurements: Chambers Valvular Assessment AV/MV Valvular Assessment TV/PV Name Value Name Value Name Value LADs: 3.2 cm MV E' Septal: 0.06 m/s CVP (est.): 5 mmHg LADs Lon.4 cm MV E/E' Septal: 13.80 LA Area: 19.7 cm2 MV E/E' Lateral: 7.80 Patient: MENG CODY Study Date: 08/21/2017 Page 1 of 2 09:48 PM Findings: Left Ventricle: Normal size left ventricle. Global hypercontractility of the left ventricle. EF is 67 %. Right Ventricle: Normal size right ventricle. Left Atrium: The left atrium is normal in size. Right Atrium: The right atrium is normal in size. Mitral Valve: The mitral valve is normal in appearance. Aortic Valve: The aortic valve is normal in appearance. Tricuspid Valve: The tricuspid valve appears normal. The pulmonary artery pressure is mildly increased. RVSP is 46mmHG.. Pericardium: No pericardial effusion. (No Signature Object) Patient: MENG CODY Study Date: 08/21/2017 Page 2 of 2 09:48 PM [id number]
--- NOTE | 2017-08-23 08:21 | ECHO ---
[email or web address] [address] [address] Main: [phone] Fax: Transthoracic Echocardiogram Name: MENG CODY MR#: [id number] Study Date: 08/21/2017 Study Time: 09:48 PM Date of : 1965 Age: 52 year(s) Height: 165.1 cm (65 in.) Weight: 84.82 kg (187 lb.) BSA: 1.92 m2 Gender: Female Examination: Echo Indication: CHF/ On bipap 106 Image Quality: Contrast: Requested by: Macrel Aleman BP: 106 mmHg/41 mmHg Heart Rate: Rhythm: Indication: CHF/ On bipap Procedure Staff Aircraft Avionics Technician: Mary Hopkins Reading Physician: Blayne Wood Requesting Provider: Conclusions: Normal left ventricular size and systolic function. LVEF 65-70%. Normal left ventricular wall motion. Normal appearing valvular structures. Grossly normal valvular structures. No significant valvular stenosis or insufficiency. No pericardial effusion. Measurements: Chambers Valvular Assessment AV/MV Valvular Assessment TV/PV Normal Normal Normal Name Value Range Name Value Range Name Value Range Ao Alicia (MM): 2.9 cm (2.2 cm-3.7 AV meanP mmHg ( - ) TR Vmax: 3.20 mm/s ( - ) cm) MV E Vmax: 0.83 m/s ( - ) TR PGmax: 41 mmHg ( - ) IVSd (2D): 0.9 cm (0.6 cm-1.1 MV A Vmax: 0.67 m/s ( - ) syst. PAP: 46 mmHg ( - ) cm) MV E/A: 1.24 ( - ) LVDd (2D): 4.8 cm (3.9 cm-5.3 cm) LVDs (2D): 3.0 cm (2.1 cm-4 cm) LVPWd (2D): 1.0 cm ( - ) LVEF (2D): 67 (>=54 %) Continued Measurements: Chambers Valvular Assessment AV/MV Valvular Assessment TV/PV Name Value Name Value Name Value LADs: 3.2 cm MV E' Septal: 0.06 m/s CVP (est.): 5 mmHg LADs Lon.4 cm MV E/E' Septal: 13.80 LA Area: 19.7 cm2 MV E/E' Lateral: 7.80 Patient: MENG CODY Study Date: 08/21/2017 Page 1 of 2 09:48 PM Findings: Left Ventricle: Normal size left ventricle. Global hypercontractility of the left ventricle. EF is 67 %. Right Ventricle: Normal size right ventricle. Left Atrium: The left atrium is normal in size. Right Atrium: The right atrium is normal in size. Mitral Valve: The mitral valve is normal in appearance. Aortic Valve: The aortic valve is normal in appearance. Tricuspid Valve: The tricuspid valve appears normal. The pulmonary artery pressure is mildly increased. RVSP is 46mmHG.. Pericardium: No pericardial effusion. (No Signature Object) Patient: MENG CODY Study Date: 08/21/2017 Page 2 of 2 09:48 PM [id number]
--- NOTE | 2017-08-23 08:21 | ECHO ---
[email or web address] [address] [address] Main: [phone] Fax: Transthoracic Echocardiogram Name: MENG CODY MR#: [id number] Study Date: 08/21/2017 Study Time: 09:48 PM Date of : 1965 Age: 52 year(s) Height: 165.1 cm (65 in.) Weight: 84.82 kg (187 lb.) BSA: 1.92 m2 Gender: Female Examination: Echo Indication: CHF/ On bipap 106 Image Quality: Contrast: Requested by: Marcel Aleman BP: 106 mmHg/41 mmHg Heart Rate: Rhythm: Indication: CHF/ On bipap Procedure Staff Insurance Underwriter Sales: Mary Hopkins Reading Physician: Blayne Wood Requesting Provider: Conclusions: Normal left ventricular size and systolic function. LVEF 65-70%. Normal left ventricular wall motion. Normal appearing valvular structures. Grossly normal valvular structures. No significant valvular stenosis or insufficiency. No pericardial effusion. Measurements: Chambers Valvular Assessment AV/MV Valvular Assessment TV/PV Normal Normal Normal Name Value Range Name Value Range Name Value Range Ao Alicia (MM): 2.9 cm (2.2 cm-3.7 AV meanP mmHg ( - ) TR Vmax: 3.20 mm/s ( - ) cm) MV E Vmax: 0.83 m/s ( - ) TR PGmax: 41 mmHg ( - ) IVSd (2D): 0.9 cm (0.6 cm-1.1 MV A Vmax: 0.67 m/s ( - ) syst. PAP: 46 mmHg ( - ) cm) MV E/A: 1.24 ( - ) LVDd (2D): 4.8 cm (3.9 cm-5.3 cm) LVDs (2D): 3.0 cm (2.1 cm-4 cm) LVPWd (2D): 1.0 cm ( - ) LVEF (2D): 67 (>=54 %) Continued Measurements: Chambers Valvular Assessment AV/MV Valvular Assessment TV/PV Name Value Name Value Name Value LADs: 3.2 cm MV E' Septal: 0.06 m/s CVP (est.): 5 mmHg LADs Lon.4 cm MV E/E' Septal: 13.80 LA Area: 19.7 cm2 MV E/E' Lateral: 7.80 Patient: MENG CODY Study Date: 08/21/2017 Page 1 of 2 09:48 PM Findings: Left Ventricle: Normal size left ventricle. Global hypercontractility of the left ventricle. EF is 67 %. Right Ventricle: Normal size right ventricle. Left Atrium: The left atrium is normal in size. Right Atrium: The right atrium is normal in size. Mitral Valve: The mitral valve is normal in appearance. Aortic Valve: The aortic valve is normal in appearance. Tricuspid Valve: The tricuspid valve appears normal. The pulmonary artery pressure is mildly increased. RVSP is 46mmHG.. Pericardium: No pericardial effusion. (No Signature Object) Patient: MENG CODY Study Date: 08/21/2017 Page 2 of 2 09:48 PM [id number]
[2017-08-23] MEDS ORDERED: CALCIUM CHLORIDE 1 GM/10 ML INJ IV ONE ×4 (08:30→10:45)
[2017-08-23] MEDS: VECURONIUM BROMIDE 50 MG in D5W 50 ML IV SCH ×2 (08:40→16:41)
[2017-08-23] MEDS ORDERED: INSULIN REGULAR HUMAN 100 UNIT/ML IVP ONE (08:45)
--- NOTE | 2017-08-23 08:51 | HOSPPROG ---
Hospitalist Progress Note Assessment/Plan: Hospitalist Night Float Note Arrived to bedside immediately after Code wil called over head as I was on unit early AM. see code sheet for details. 52 yo F admitted with arf 2/2 granulomatosis with multiorgan failure and respiratory failure developed hypoxia and subsequently PEA arrest. Patient received CPR, dose epi and bicarb with ROSC. Patient requiring pressor support on levophed, vasopressin overnight. epinephrine gtt and albumin was added. Patient continued to have persistent hypoxia to 30s-40% PEEP 15. After ROSC I called and notified recommended he arrive as soon as possible to bedside. VS reviewed. SBP 70s with levophed/vasopressin, SBP increased to 90s with epinephrine. Labs reviewed. Case discussed with Critical care this AM. Gen - Acutely ill, pale obese female lays intubated and unresponsive in bed. CV - distant heart sounds. Resp - intubated. diminished bibasilar. coarse diffusely. no wheezing. ETT coated with thin layer bright blood. Abd - obese. soft. hypoactive bowel sounds. Ext - decreased pedal pulses. Neuro - unresponsive intubated. ENT - OGT in place. Psych - intubated, unresponsive. eyes - exophthalmos bilaterally. no drainage. lubed,closed. A/P: - PEA cardiac arrest - multifactorial causes including respiratory failure/ hypoxia/ARDS, acidosis, multiorgan failure, anemia. - critical care and nephrology consulted. on CRRT. - cont epi gtt in addition levophed/vasopressin. - transfuse -shock with multiorgan failure. continue epinephrine/levophed/vasopressin. s/p albumin - acute respiratory failure - ventilated. discussed with pulm -resp/met acidosis - ventilated, crrt as per nephrology - ARF - crrt. -granulomatosis - steroids, plasma pheresis. -anemia - minimal blood in ett. on crrt. transfuse 2 units. -hyperkalemia - per nephrology. -hyperglycemia - s/p steroid. insulin prn. -transaminitis - 2/2 shock liver. - coagulopathy - 2/2 above. - thrombocytopenia - not on anticoagulation. likely related to acute illness. continue to monitor h/h. -glaucoma -hx graves/hypothyroidism - levothyroxine - leukocytosis on zosyn. afebrile. likely demarginilzation in setting of cardiac arrest and multiorgan failure. total critical care time this AM 45 minutes Objective: Vital Signs Temp Pulse Resp BP Pulse Ox 37.1 C 120 H 42 H 107/90 H 78 L 08/23/17 06:00 08/23/17 06:00 08/23/17 06:00 08/23/17 06:00 08/23/17 06:00 Microbiology 08/21/17 15:00 Gram Stain - Final Lung Bilateral - Bronchial Washings 08/21/17 15:00 Mycobacterial Smear (DEVIN) - Final Lung Bilateral - Bronchial Washings Laboratory Results 08/23/17 07:40 08/23/17 07:40 08/22/17 08/23/17 08/24/17 05:59 05:59 05:59 Intake Total 2790 4290.5 Output Total 700 981 Balance 2090 3309.5 PT 21.6 SEC (12.0-15.0) H 08/23/17 07:40 INR 1.87 (0.83-1.16) H 08/23/17 07:40 ICD10 Worksheet Patient Problems: Problems Problem Status Onset JULIETA (acute kidney injury) Acute
[2017-08-23] MEDS ORDERED: ESCITALOPRAM OXALATE 10 MG TAB TUBE SCH (09:00)
[2017-08-23] MEDS ORDERED: methylPREDNISolone SOD SUCC 1,000 MG in D5W 100 ML IV SCH (09:00)
[2017-08-23] MEDS: NOREPINEPHRINE BITARTRATE 16 MG in NS 250 ML IV SCH ×2 (09:00→12:06)
[2017-08-23] MEDS ORDERED: NA BICARBONATE 50 MEQ/50 ML VIAL IV ONE ×3 (10:00→14:45)
[2017-08-23] MEDS: SODIUM BICARBONATE 150 MEQ in D5W 1,000 ML IV SCH ×2 (10:17→17:11)
[2017-08-23] MEDS ORDERED: HEPARIN 10,000 UNIT/10 ML MDV ONE (10:30)
[2017-08-23] MEDS ORDERED: HEPARIN 10,000 UNIT/10 ML MDV IVP PRN (10:35)
[2017-08-23] MEDS ORDERED: HEPARIN 10,000 UNIT/10 ML MDV IVP ONE (10:35)
[2017-08-23] MEDS ORDERED: HEPARIN/DEXTROSE 500 ML IV SCH (10:45)
[2017-08-23] MEDS ORDERED: EPINEPHrine 1 MG/10 ML SYR IVP ONE (12:00)
[2017-08-23] MEDS ORDERED: CALCIUM CHLORIDE 1 GM/10 ML INJ ONE (12:00)
[2017-08-23] MEDS: SODIUM CITRATE 4% IV SCH ×2 (12:21→15:02)
[2017-08-23] MEDS: NS IV SCH (12:23)
[2017-08-23] MEDS: CALCIUM GLUCONATE IV SCH (12:23)
--- NOTE | 2017-08-23 13:03 | GOP ---
[f rep st] OPERATIVE REPORT DATE OF OPERATION: SURGEON: John Cosme DO ANESTHESIA: None. PREOPERATIVE DIAGNOSIS: Respiratory failure. POSTOPERATIVE DIAGNOSIS: Respiratory failure. PROCEDURE PERFORMED: Right internal jugular ECMO catheter. FINDINGS: DESCRIPTION OF PROCEDURE: Previous dialysis catheter was wired under echo guidance with placement of the wire in the right atrium. The dialysis catheter was removed. The tunnel was increased in size with an 11 blade and dilating sheaths. We then put a 27-Polish ECMO catheter under echo guidance wit h the side lumen facing the tricuspid valve. This was secured in place and connected with perfusion machine. Initial oxygenation was markedly improved. The patient remained hemodynamically stable. I t was sutured in place without difficulty. /[id number]/MODL
--- NOTE | 2017-08-23 13:03 | GOP ---
[f rep st] OPERATIVE REPORT DATE OF OPERATION: SURGEON: John Cosme DO ANESTHESIA: None. PREOPERATIVE DIAGNOSIS: Respiratory failure. POSTOPERATIVE DIAGNOSIS: Respiratory failure. PROCEDURE PERFORMED: Right internal jugular ECMO catheter. FINDINGS: DESCRIPTION OF PROCEDURE: Previous dialysis catheter was wired under echo guidance with placement of the wire in the right atrium. The dialysis catheter was removed. The tunnel was increased in size with an 11 blade and dilating sheaths. We then put a 27-Thai ECMO catheter under echo guidance wit h the side lumen facing the tricuspid valve. This was secured in place and connected with perfusion machine. Initial oxygenation was markedly improved. The patient remained hemodynamically stable. I t was sutured in place without difficulty. /[id number]/MODL
--- NOTE | 2017-08-23 13:03 | GOP ---
[f rep st] OPERATIVE REPORT DATE OF OPERATION: SURGEON: John Cosme DO ANESTHESIA: None. PREOPERATIVE DIAGNOSIS: Respiratory failure. POSTOPERATIVE DIAGNOSIS: Respiratory failure. PROCEDURE PERFORMED: Right internal jugular ECMO catheter. FINDINGS: DESCRIPTION OF PROCEDURE: Previous dialysis catheter was wired under echo guidance with placement of the wire in the right atrium. The dialysis catheter was removed. The tunnel was increased in size with an 11 blade and dilating sheaths. We then put a 27-Lao ECMO catheter under echo guidance wit h the side lumen facing the tricuspid valve. This was secured in place and connected with perfusion machine. Initial oxygenation was markedly improved. The patient remained hemodynamically stable. I t was sutured in place without difficulty. /[id number]/MODL
[2017-08-23] MEDS ORDERED: EPINEPHrine 4 MG in D5W 1,000 ML IV SCH (13:30)
[2017-08-23] MEDS: prednisoLONE ACET 1% 5 ML OPHT.BTL EACHEYE SCH (13:34)
[2017-08-23 13:36] LABS: PROTIME(PATIENT) 46.4 SEC (12.0-15.0)
[2017-08-23 13:37] LABS: INR 4.86 (0.83-1.16)
[2017-08-23 13:38] LABS: PLATELET COUNT 91 10^3/uL (150-400)
--- NOTE | 2017-08-23 14:13 | HOSPPROG ---
Hospitalist Progress Note Assessment/Plan: 52-year-old female with recent diagnosis of granulomatosis with polyangiitis, had started on CRRT and plasmapheresis with high-dose Solu-Medrol. She had a PEA arrest last night, received CPR, had return of spontaneous circulation after epinephrine. Bronchoscopy was relatively unrevealing. She continued to be hypotensive and very hypoxic on maximum ventilatory settings. We prone her with slight improvement in her oxygen saturations though she was still at about 70%. Because of this we decided to transition to ECMO. Catheters were placed by Dr. Cosme. After plasmapheresis today, she will be transferred to [facility] for increased level of care. # acute respiratory failure with refractory hypoxia and hypercapnia - intubated - currently on ECMO for oxygenation # shock on multiple pressors - follow closely # granulomatosis with polyangiitis - causing resp failure and renal failure - steroids, TPE per renal, rituxan # acute renal failure - now on CRRT # anemia s/p transfusions # concern for glaucoma/increased intraocular pressures - needs ophtho consult at some point # hx Graves/hypothyroid - synthroid 45 mins critical care time Subjective: required CPR overnight for PEA arrest; had ROSC after epi; continued to be unresponsive, hypotensive and hypoxic Objective: Vital Signs Temp Pulse Resp BP Pulse Ox 37.3 C 121 H 30 H 140/124 H 72 L 08/23/17 08:00 08/23/17 08:00 08/23/17 08:00 08/23/17 08:00 08/23/17 08:00 Microbiology 08/21/17 15:00 Gram Stain - Final Lung Bilateral - Bronchial Washings Bronchial Washings Culture - Final 08/21/17 11:45 Urine Culture - Final Urine,Clean Catch 08/21/17 15:00 Mycobacterial Smear (DEVIN) - Final Lung Bilateral - Bronchial Washings Laboratory Results 08/23/17 12:50 08/23/17 12:50 08/22/17 08/23/17 08/24/17 05:59 05:59 05:59 Intake Total 2790 4290.5 Output Total 700 981 Balance 2090 3309.5 PT 46.4 SEC (12.0-15.0) H D 08/23/17 12:50 INR 4.86 (0.83-1.16) H 11/03/17 12:50 - Physical Exam Constitutional: other (non-responsive) Ears, Nose, Mouth, Throat: other (R ECMO catheters in place) Cardiovascular: regular rate and rhythym Respiratory: other (intubated; diffuse crackles) Gastrointestinal: soft, non-tender abdomen Genitourinary: tapia in urethra ICD10 Worksheet Patient Problems: Problems Problem Status Onset JULIETA (acute kidney injury) Acute
[2017-08-23] MEDS: BRIMONIDINE/TIMOLOL 5 ML OPHT.BTL LEFTEYE SCH (14:41)
[2017-08-23] MEDS ORDERED: D5W 1,000 ML IV SCH (14:45)
[2017-08-23] MEDS: PANTOPRAZOLE SODIUM 40 MG VIAL IVP SCH (14:55)
[2017-08-23] MEDS ORDERED: INSULIN REGULAR HUMAN 100 UNIT in NS 100 ML IV SCH (15:00)
[2017-08-23 15:10] VITALS: RESP 20
--- NOTE | 2017-08-23 16:01 | CPEKG ---
Heart Rate: 97 RR Interval: 619 P-R Interval: 200 QRSD Interval: 104 QT Interval: 368 QTC Interval: 468 P Gresham: 62 QRS Gresham: -66 T Wave Gresham: 85 EKG Severity - ABNORMAL ECG - EKG Impression: SINUS RHYTHM EKG Impression: VENTRICULAR PREMATURE COMPLEX EKG Impression: LEFT ANTERIOR FASCICULAR BLOCK EKG Impression: LOW VOLTAGE THROUGHOUT Electronically Signed By: Zay Rincon 24-Aug-2017 08:21:51
[2017-08-23] MEDS ORDERED: HEPARIN 50,000 UNIT/10 ML VIAL ONE (16:08)
--- NOTE | 2017-08-23 16:11 | SOAPPROG ---
SOAP Progress Note Assessment/Plan: Assessment:Plan: Pulmonary renal syndrome-+ ANCA -was able to tolerate TPE #2 for 3Liter, replaced with FFP -no clotting of systems with concurrent use of anticoagulation while on ECMO therapy -on increased steroids per pulmonary -s/p bronch today -CRRT performed briefly prior ECMO and TPE to ensure chemistries stabilized prior to plasma exchange -electrolyte issues under control based on recent labs -will likely need CRRT after transfer to [facility] -plan for transfer at tonight per RN 08/23/17 16:12 Objective: Vital Signs Temp Pulse Resp BP Pulse Ox 34.2 C L 100 20 124/53 H 90 L 08/23/17 15:00 08/23/17 15:00 08/23/17 15:00 08/23/17 15:00 08/23/17 15:00 Microbiology 08/21/17 15:00 Gram Stain - Final Lung Bilateral - Bronchial Washings Bronchial Washings Culture - Final 08/21/17 11:45 Urine Culture - Final Urine,Clean Catch 08/21/17 15:00 Mycobacterial Smear (DEVIN) - Final Lung Bilateral - Bronchial Washings Laboratory Results 08/23/17 12:50 08/23/17 12:50 08/22/17 08/23/17 08/24/17 05:59 05:59 05:59 Intake Total 2790 4290.5 300 Output Total 700 981 Balance 2090 3309.5 300 PT 46.4 SEC (12.0-15.0) H D 08/23/17 12:50 INR 4.86 (0.83-1.16) H 08/23/17 12:50 ICD10 Worksheet Patient Problems: Problems Problem Status Onset JULIETA (acute kidney injury) Acute
--- NOTE | 2017-08-23 16:11 | SOAPPROG ---
SOAP Progress Note Assessment/Plan: Assessment:Plan: Pulmonary renal syndrome-+ ANCA -was able to tolerate TPE #2 for 3Liter, replaced with FFP -no clotting of systems with concurrent use of anticoagulation while on ECMO therapy -on increased steroids per pulmonary -s/p bronch today -CRRT performed briefly prior ECMO and TPE to ensure chemistries stabilized prior to plasma exchange -electrolyte issues under control based on recent labs -will likely need CRRT after [place] [facility] [place]plan for transfer at tonight per RN 08/23/17 16:12 Objective: Vital Signs Temp Pulse Resp BP Pulse Ox 34.2 C L 100 20 124/53 H 90 L 08/23/17 15:00 08/23/17 15:00 08/23/17 15:00 08/23/17 15:00 08/23/17 15:00 Microbiology 08/21/17 15:00 Gram Stain - Final Lung Bilateral - Bronchial Washings Bronchial Washings Culture - Final 08/21/17 11:45 Urine Culture - Final Urine,Clean Catch 08/21/17 15:00 Mycobacterial Smear (DEVIN) - Final Lung Bilateral - Bronchial Washings Laboratory Results 08/23/17 12:50 08/23/17 12:50 08/22/17 08/23/17 08/24/17 05:59 05:59 05:59 Intake Total 2790 4290.5 300 Output Total 700 981 Balance 2090 3309.5 300 PT 46.4 SEC (12.0-15.0) H D 08/23/17 12:50 INR 4.86 (0.83-1.16) H 08/23/17 12:50 ICD10 Worksheet Patient Problems: Problems Problem Status Onset JULIETA (acute kidney injury) Acute
--- NOTE | 2017-08-23 16:11 | SOAPPROG ---
SOAP Progress Note Assessment/Plan: Assessment:Plan: Pulmonary renal syndrome-+ ANCA -was able to tolerate TPE #2 for 3Liter, replaced with FFP -no clotting of systems with concurrent use of anticoagulation while on ECMO therapy -on increased steroids per pulmonary -s/p bronch today -CRRT performed briefly prior ECMO and TPE to ensure chemistries stabilized prior to plasma exchange -electrolyte issues under control based on recent labs -will likely need CRRT after transfer to [facility] -plan for transfer at tonight per RN 08/23/17 16:12 Objective: Vital Signs Temp Pulse Resp BP Pulse Ox 34.2 C L 100 20 124/53 H 90 L 08/23/17 15:00 08/23/17 15:00 08/23/17 15:00 08/23/17 15:00 08/23/17 15:00 Microbiology 08/21/17 15:00 Gram Stain - Final Lung Bilateral - Bronchial Washings Bronchial Washings Culture - Final 08/21/17 11:45 Urine Culture - Final Urine,Clean Catch 08/21/17 15:00 Mycobacterial Smear (DEVIN) - Final Lung Bilateral - Bronchial Washings Laboratory Results 08/23/17 12:50 08/23/17 12:50 08/22/17 08/23/17 08/24/17 05:59 05:59 05:59 Intake Total 2790 4290.5 300 Output Total 700 981 Balance 2090 3309.5 300 PT 46.4 SEC (12.0-15.0) H D 08/23/17 12:50 INR 4.86 (0.83-1.16) H 08/23/17 12:50 ICD10 Worksheet Patient Problems: Problems Problem Status Onset JULIETA (acute kidney injury) Acute
--- NOTE | 2017-08-23 16:35 | ECHO ---
[email or web address] [place] [id number] Main: [phone] Fax: Transesophageal Echocardiography Name: MENG CODY MR#: [id number] Study Date: 08/23/2017 Study Time: 10:32 AM Date of : 1965 Age: 52 year(s) Height: ( ) Weight: ( ) BSA: Gender: Female Examination: BRET Indication: Image Quality: Contrast: Requested by: Kingston Merino Heart Rate: Rhythm: BP: / Procedure Staff Conservation Or Heritage Architect: Walter Fields Physician: Sukhjinder Hills Requesting Provider: BRET Exam Details Conclusions: guide wire visualized across the right atrium. ECMO catheter visualized within the right atrium. Measurements: Chambers Valvular Assessment AV/MV Valvular Assessment TV/PV Normal Normal Normal Name Value Range Name Value Range Name Value Range Additional Measurements: Findings: Exam Comments: Report to be dictated by Doctor.. l1n (No Signature Object) Patient: MENG CODY Study Date: 08/23/2017 Page 1 of 1 10:32 AM [id number]
--- NOTE | 2017-08-23 16:35 | ECHO ---
[email or web address] [place] [id number] Main: [phone] Fax: Transesophageal Echocardiography Name: MENG CODY MR#: [id number] Study Date: 08/23/2017 Study Time: 10:32 AM Date of : 1965 Age: 52 year(s) Height: ( ) Weight: ( ) BSA: Gender: Female Examination: BRET Indication: Image Quality: Contrast: Requested by: Kingston Merino Heart Rate: Rhythm: BP: / Procedure Staff Hydroelectric Production Manager: Walter Fields Physician: Sukhjinder Hills Requesting Provider: BRET Exam Details Conclusions: guide wire visualized across the right atrium. ECMO catheter visualized within the right atrium. Measurements: Chambers Valvular Assessment AV/MV Valvular Assessment TV/PV Normal Normal Normal Name Value Range Name Value Range Name Value Range Additional Measurements: Findings: Exam Comments: Report to be dictated by Doctor.. l1n (No Signature Object) Patient: MENG CODY Study Date: 08/23/2017 Page 1 of 1 10:32 AM [id number]
--- NOTE | 2017-08-23 16:35 | ECHO ---
[email or web address] [place] [id number] Main: [phone] Fax: Transesophageal Echocardiography Name: MENG CODY MR#: [id number] Study Date: 08/23/2017 Study Time: 10:32 AM Date of : 1965 Age: 52 year(s) Height: ( ) Weight: ( ) BSA: Gender: Female Examination: BRET Indication: Image Quality: Contrast: Requested by: Kingston Merino Heart Rate: Rhythm: BP: / Procedure Staff Floor Clerk: Walter Fields Physician: Sukhjinder Hills Requesting Provider: BRET Exam Details Conclusions: guide wire visualized across the right atrium. ECMO catheter visualized within the right atrium. Measurements: Chambers Valvular Assessment AV/MV Valvular Assessment TV/PV Normal Normal Normal Name Value Range Name Value Range Name Value Range Additional Measurements: Findings: Exam Comments: Report to be dictated by Doctor.. l1n (No Signature Object) Patient: MENG CODY Study Date: 08/23/2017 Page 1 of 1 10:32 AM [id number]
[2017-08-23] MEDS: VASOPRESSIN/DEXTROSE 250 ML IV SCH (16:41)
[2017-08-23 17:06] VITALS: O2SAT 100
--- NOTE | 2017-08-23 18:02 | PDINTPN ---
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 Her UA showed proteinuria and hematuria, but she did not respond to IVF band developed increasing O2 requirements, and a CXR showing significant infiltrates. She was transferred to [facility] 2/2 insurance issues where a chest CT revealed severe, diffuse consolidation with upper lobe predominance. In addition, she had several tiny petechiae lesions on her bilateral lower extremities, as well as an area of superficial ulceration on the medial aspect of her left great toe. While serologies were pending, there was significant concern about vasculitis, so a transbronchial biopsy was performed on 08/21. This showed significant pulmonary hemorrhage (prior to biopsy), and she subsequently developed severe respiratory failure with refractory hypoxemia, necessitating emergent intubation. Empiric high dose steroids were started and lines were placed to allow BP support (she became severely hypotensive following intubation) and access for both CRRT and planned plasma exchange. 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 ^ minutes of CPR before ROSC. Guarded neuro prognosis and may benefit from hypothermia protocol once stabilized. * Acute Respiratory failure with pulmonary hemorrhage and severe hypercapnia and hypoxemia- She had refractory hypoxia despite deep sedation, paralytics, inverse ratio ventilation, and proning. We subsequently opted for ECMO with the help of Reinier Rodrigez, and Ba. See discharge summary for technical details, but once the ECMO was positioned well and sweep adjusted, her pH corrected to 7.36 with a PaO2 of 219 and PCO2 of 33. * Hypotension- likely related to acid base, blood loss, ventilator, JULIETA. No evidence of septic or cardiogenic shock and doubt adrenal insufficiency. Her procalcitonin level was low at [facility], though increased acutely after her emergent intubation. Zosyn added empirically. Once her ECMO was started, her levophed was titrated off and her epi was at 0.2 mcg/kg/min with vasopressin. At points during the day today she was at maximum dose of many of these pressors * ANCA associated vasculitis- consistent with GPA since C-ANCA titers 1:512 and PR3 >8, with negative P-ANCA and MPO. She received 500 mg solumedrol on 08/22, followed by 1000 mg 08/23. She has had two full total plasma exchanges on 08/22 and 08/23. After third day of TPE, would advocate for rituxan followed by transition of steroid dose to 1 mg/kg/day. * JULIETA related to AAV as above. She has had intermittent CRRT between runs of TPE to improve acid base status, though has tolerated a 2-hour run of HD prior to transport today. She continues to have moderate UOP * Glaucoma?- here eye issues are quite unclear to me, and agree with ophthalmology consult * Transaminitis- Hep serologies negative, and I anticipate her AST/ALT will rise significantly in the next few days related to shock liver. * ICU prophylaxis should consist of SCDs and PPI * * critical care time of this highly unstable patient with multiorgan failure consisted of at least 4 hours (and probably more) at the bedside, coordinating with multiple physicians, updating family members, and arranging transport to a higher level of care. See discharge summary for additional details. 08/23/17 17:44 Subjective: See discharge summary for details Objective: Vital Signs Temp Pulse Resp BP Pulse Ox 35.5 C L 76 20 108/59 L 100 08/23/17 17:00 08/23/17 17:00 08/23/17 17:00 08/23/17 17:00 08/23/17 17:00 Microbiology 08/21/17 15:00 Gram Stain - Final Lung Bilateral - Bronchial Washings Bronchial Washings Culture - Final 08/21/17 11:45 Urine Culture - Final Urine,Clean Catch 08/21/17 15:00 Mycobacterial Smear (DEVIN) - Final Lung Bilateral - Bronchial Washings Laboratory Results 08/23/17 12:50 08/23/17 16:20 08/22/17 08/23/17 08/24/17 05:59 05:59 05:59 Intake Total 2790 4290.5 600 Output Total 700 981 Balance 2090 3309.5 600 PT 46.4 SEC (12.0-15.0) H D 08/23/17 12:50 INR 4.86 (0.83-1.16) H 08/23/17 12:50 Physical Exam - Physical Exam General Appearance: obtunded, unresponsive, other (sedated and paralyzed) EENT: PERRL/EOMI, ET tube, other (proptosis) Neck: supple, other (ECMO catheter in RIJ, TL CVC in LIJ) Respiratory: rhonchi, No respiratory distress Cardiac/Chest: regular rate, rhythm, edema (trace) Abdomen: non-tender, soft, No normal bowel sounds, No distended Back: Normal inspection Skin: warm/dry, No cyanosis, No diaphoresis, No jaundice Lymphatic: no adenopathy Extremities: pedal edema (trace), other (superficial ulceration of left great toe/) Neuro/Psych: cognition abnormalities, 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
--- NOTE | 2017-08-23 18:02 | PDINTPN ---
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 Her UA showed proteinuria and hematuria, but she did not respond to IVF band developed increasing O2 requirements, and a CXR showing significant infiltrates. She was transferred to [facility] 2/2 insurance issues where a chest CT revealed severe, diffuse consolidation with upper lobe predominance. In addition, she had several tiny petechiae lesions on her bilateral lower extremities, as well as an area of superficial ulceration on the medial aspect of her left great toe. While serologies were pending, there was significant concern about vasculitis, so a transbronchial biopsy was performed on 08/21. This showed significant pulmonary hemorrhage (prior to biopsy), and she subsequently developed severe respiratory failure with refractory hypoxemia, necessitating emergent intubation. Empiric high dose steroids were started and lines were placed to allow BP support (she became severely hypotensive following intubation) and access for both CRRT and planned plasma exchange. 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 ^ minutes of CPR before ROSC. Guarded neuro prognosis and may benefit from hypothermia protocol once stabilized. * Acute Respiratory failure with pulmonary hemorrhage and severe hypercapnia and hypoxemia- She had refractory hypoxia despite deep sedation, paralytics, inverse ratio ventilation, and proning. We subsequently opted for ECMO with the help of Reinier Rodrigez, and Ba. See discharge summary for technical details, but once the ECMO was positioned well and sweep adjusted, her pH corrected to 7.36 with a PaO2 of 219 and PCO2 of 33. * Hypotension- likely related to acid base, blood loss, ventilator, JULIETA. No evidence of septic or cardiogenic shock and doubt adrenal insufficiency. Her procalcitonin level was low at [facility], though increased acutely after her emergent intubation. Zosyn added empirically. Once her ECMO was started, her levophed was titrated off and her epi was at 0.2 mcg/kg/min with vasopressin. At points during the day today she was at maximum dose of many of these pressors * ANCA associated vasculitis- consistent with GPA since C-ANCA titers 1:512 and PR3 >8, with negative P-ANCA and MPO. She received 500 mg solumedrol on 08/22, followed by 1000 mg 08/23. She has had two full total plasma exchanges on 08/22 and 08/23. After third day of TPE, would advocate for rituxan followed by transition of steroid dose to 1 mg/kg/day. * JULIETA related to AAV as above. She has had intermittent CRRT between runs of TPE to improve acid base status, though has tolerated a 2-hour run of HD prior to transport today. She continues to have moderate UOP * Glaucoma?- here eye issues are quite unclear to me, and agree with ophthalmology consult * Transaminitis- Hep serologies negative, and I anticipate her AST/ALT will rise significantly in the next few days related to shock liver. * ICU prophylaxis should consist of SCDs and PPI * * critical care time of this highly unstable patient with multiorgan failure consisted of at least 4 hours (and probably more) at the bedside, coordinating with multiple physicians, updating family members, and arranging transport to a higher level of care. See discharge summary for additional details. 08/23/17 17:44 Subjective: See discharge summary for details Objective: Vital Signs Temp Pulse Resp BP Pulse Ox 35.5 C L 76 20 108/59 L 100 08/23/17 17:00 08/23/17 17:00 08/23/17 17:00 08/23/17 17:00 08/23/17 17:00 Microbiology 08/21/17 15:00 Gram Stain - Final Lung Bilateral - Bronchial Washings Bronchial Washings Culture - Final 08/21/17 11:45 Urine Culture - Final Urine,Clean Catch 08/21/17 15:00 Mycobacterial Smear (DEVIN) - Final Lung Bilateral - Bronchial Washings Laboratory Results 08/23/17 12:50 08/23/17 16:20 08/22/17 08/23/17 08/24/17 05:59 05:59 05:59 Intake Total 2790 4290.5 600 Output Total 700 981 Balance 2090 3309.5 600 PT 46.4 SEC (12.0-15.0) H D 08/23/17 12:50 INR 4.86 (0.83-1.16) H 08/23/17 12:50 Physical Exam - Physical Exam General Appearance: obtunded, unresponsive, other (sedated and paralyzed) EENT: PERRL/EOMI, ET tube, other (proptosis) Neck: supple, other (ECMO catheter in RIJ, TL CVC in LIJ) Respiratory: rhonchi, No respiratory distress Cardiac/Chest: regular rate, rhythm, edema (trace) Abdomen: non-tender, soft, No normal bowel sounds, No distended Back: Normal inspection Skin: warm/dry, No cyanosis, No diaphoresis, No jaundice Lymphatic: no adenopathy Extremities: pedal edema (trace), other (superficial ulceration of left great toe/) Neuro/Psych: cognition abnormalities, 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
--- NOTE | 2017-08-23 18:10 | SOAPPROG ---
SOAP Progress Note Assessment/Plan: Assessment:Plan: Pulmonary renal syndrome-+ ANCA -discussed [facility] Dr. Mar late this afternoon -pH too low for transport -decided to try a short run of Hd to correct pH quickly as CRRT would likely take several hours to have the desired effect -patient responding well to Hd, getting blood, with decreased heart rate and increased pH to 7.3. -discussed with supervisor paper machine -plan is to transfer tonight -if she remains at [facility], we will need to arrange for restart of CRRT later tonight and TPE tomorrow, but it looks like she will be able to be transported after her dialysis treatment is completed tonight 08/23/17 18:07 Objective: Vital Signs Temp Pulse Resp BP Pulse Ox 35.5 C L 76 20 108/59 L 100 08/23/17 17:00 08/23/17 17:00 08/23/17 17:00 08/23/17 17:00 08/23/17 17:00 Microbiology 08/21/17 15:00 Gram Stain - Final Lung Bilateral - Bronchial Washings Bronchial Washings Culture - Final 08/21/17 11:45 Urine Culture - Final Urine,Clean Catch 08/21/17 15:00 Mycobacterial Smear (DEVIN) - Final Lung Bilateral - Bronchial Washings Laboratory Results 08/23/17 12:50 08/23/17 16:20 08/22/17 08/23/17 08/24/17 05:59 05:59 05:59 Intake Total 2790 4290.5 600 Output Total 700 981 Balance 2090 3309.5 600 PT 46.4 SEC (12.0-15.0) H D 08/23/17 12:50 INR 4.86 (0.83-1.16) H 08/23/17 12:50 ICD10 Worksheet Patient Problems: Problems Problem Status Onset JULIETA (acute kidney injury) Acute
--- NOTE | 2017-08-23 18:10 | SOAPPROG ---
SOAP Progress Note Assessment/Plan: Assessment:Plan: Pulmonary renal syndrome-+ ANCA -discussed [facility] Dr. Mar late this afternoon -pH too low for transport -decided to try a short run of Hd to correct pH quickly as CRRT would likely take several hours to have the desired effect -patient responding well to Hd, getting blood, with decreased heart rate and increased pH to 7.3. -discussed with quality control lab tech -plan is to transfer tonight -if she remains at [facility], we will need to arrange for restart of CRRT later tonight and TPE tomorrow, but it looks like she will be able to be transported after her dialysis treatment is completed tonight 08/23/17 18:07 Objective: Vital Signs Temp Pulse Resp BP Pulse Ox 35.5 C L 76 20 108/59 L 100 08/23/17 17:00 08/23/17 17:00 08/23/17 17:00 08/23/17 17:00 08/23/17 17:00 Microbiology 08/21/17 15:00 Gram Stain - Final Lung Bilateral - Bronchial Washings Bronchial Washings Culture - Final 08/21/17 11:45 Urine Culture - Final Urine,Clean Catch 08/21/17 15:00 Mycobacterial Smear (DEVIN) - Final Lung Bilateral - Bronchial Washings Laboratory Results 08/23/17 12:50 08/23/17 16:20 08/22/17 08/23/17 08/24/17 05:59 05:59 05:59 Intake Total 2790 4290.5 600 Output Total 700 981 Balance 2090 3309.5 600 PT 46.4 SEC (12.0-15.0) H D 08/23/17 12:50 INR 4.86 (0.83-1.16) H 08/23/17 12:50 ICD10 Worksheet Patient Problems: Problems Problem Status Onset JULIETA (acute kidney injury) Acute
--- NOTE | 2017-08-23 18:10 | SOAPPROG ---
SOAP Progress Note Assessment/Plan: Assessment:Plan: Pulmonary renal syndrome-+ ANCA -discussed [facility] Dr. Mar late this afternoon -pH too low for transport -decided to try a short run of Hd to correct pH quickly as CRRT would likely take several hours to have the desired effect -patient responding well to Hd, getting blood, with decreased heart rate and increased pH to 7.3. -discussed with shank piece tacker -plan is to transfer tonight -if she remains at [facility], we will need to arrange for restart of CRRT later tonight and TPE tomorrow, but it looks like she will be able to be transported after her dialysis treatment is completed tonight 08/23/17 18:07 Objective: Vital Signs Temp Pulse Resp BP Pulse Ox 35.5 C L 76 20 108/59 L 100 08/23/17 17:00 08/23/17 17:00 08/23/17 17:00 08/23/17 17:00 08/23/17 17:00 Microbiology 08/21/17 15:00 Gram Stain - Final Lung Bilateral - Bronchial Washings Bronchial Washings Culture - Final 08/21/17 11:45 Urine Culture - Final Urine,Clean Catch 08/21/17 15:00 Mycobacterial Smear (DEVIN) - Final Lung Bilateral - Bronchial Washings Laboratory Results 08/23/17 12:50 08/23/17 16:20 08/22/17 08/23/17 08/24/17 05:59 05:59 05:59 Intake Total 2790 4290.5 600 Output Total 700 981 Balance 2090 3309.5 600 PT 46.4 SEC (12.0-15.0) H D 08/23/17 12:50 INR 4.86 (0.83-1.16) H 08/23/17 12:50 ICD10 Worksheet Patient Problems: Problems Problem Status Onset JULIETA (acute kidney injury) Acute
[2017-08-23] MEDS: POTASSIUM Cl (KCl) 50 ML IV PRN (18:28)
--- NOTE | 2017-08-23 18:40 | GDS ---
[f rep st] DISCHARGE SUMMARY This patient is a 52-year-old female who originally presented to [facility] on complaining of diarrhea, generalized aches and pains, and hemoptysis. She started having difficul ty with her eyes and poor vision with proptosis and saw an biotechnician who diagnosed high intraoc ular pressure. She was given steroid eyedrops and complained of significant nausea but worsening of her joint complaints. She took herself off the eyedrops and started taking nonsteroidal anti-inflamm atory medications and presented to [facility] as described above. She was found t o be in acute renal failure with a creatinine of about 4.2 at the time. They thought it was mostly d ue to the NSAIDs and gave her IV fluids, but when she failed to respond, started looking into other c auses of renal failure. A Renal consult was obtained and serologies were sent. However, during that time, she developed an increasing oxygen requirement up to about 8 L/minute. A chest x-ray showed s ignificant bilateral upper lobe infiltrates. It was also discovered at that time that her insurance demanded changed to a different hospital, and she was therefore transferred to [facility] on 08/20/2017. On arrival, a CT scan was performed that showed dense consolidation in the bilat eral upper lobes primarily with prominent lymphadenopathy, but little to no pleural disease. She was still having hemoptysis at that time and oxygen saturation was 8 L/minute. Then she was evaluated b y me and we decided to proceed with a bronchoscopy for diagnosis. The bronchoscopy was uneventful, b ut later that same evening, she developed respiratory failure with hypoxemia and required emergent in tubation. There was no pneumothorax. Subsequent to the intubation. She developed hypotension and r equired high-dose Levophed at about 20 mcg, but appeared to be relatively stable shortly after that. Subsequently, C ANCA with high titer PR3 became available, and she was started on CRRT with plans fo r 3 days of total plasma exchange along with 500 mg daily of Solu-Medrol. Once the plasma exchange w as completed, she was to get Rituxan. However, on the morning of 08/23, she developed worsening hypo xemia and had a cardiac arrest with PEA, presumably due to hypoxemia. She received 6 minutes of CPR time and 2 rounds of epinephrine before they had return of spontaneous circulation. However, she had refractory hypoxemia that did not respond to multiple maneuvers and was eventually placed on extraco rporeal membrane oxygenation, which resulted in substantial improvement on all fronts. Because of th e ECMO, it was determined that she needed a higher level of care than could be provided at this [facility], and therefore, was arranged for transport. HOSPITAL COURSE: By problem: 1. Hypoxemia, which is as described above. She has significant ARDS with diffuse severe bilateral i nfiltrates complicated by pneumomediastinum, presumably from CPR. There is some subcutaneous air, bu t there was no evidence of pneumothorax on multiple chest x-rays. There is certainly an element of p ulmonary hemorrhage as was seen on her initial bronchoscopy. She had a second bronchoscopy done toda y that did not show any obstruction of the airway in any form. With the ECMO in place at this time, her most recent blood gas shows a pH of 7.36, pCO2 of 33, PO2 of 219, a bicarb of 19, with a base exc ess of -6, and an oxygen saturation of 100%. This is primarily being manipulated by the ECMO, which shows a flow rate of 3.9 L/minute with a sweep of 6. Her ventilator is set to support her only using an ultra protective strategy of 4 cc/kg tidal volume. The rate is 20. The tidal volume is subseque ntly 250. She is on 20 of PEEP, leaving her with a peak inspiratory pressure of 25-30. She is paral yzed with vecuronium and sedated with propofol, resulting in a BIZ of about 40. She has a right femo ral artery arterial line. Of note, during the procedure to have the ECMO catheters placed, access wa s initially directed toward the right superficial femoral artery. This was cannulated easily and dil ators were started, and we were planning on putting the primary catheter in there but realized it was too short. Subsequently, access was obtained through the right IJ with CT surgery, which went fairl y smoothly. However, to access the right internal jugular vein, the existing hemodialysis catheter h ad to be removed from there. A new dialysis catheter was placed via the wire that was already in amy ce in the femoral vein, and another wire was placed into the IJ where the ECMO catheter was then plac ed. Shortly after that, her ACT levels were quite high, and she had significant oozing at that time. However, shortly afterwards, this corrected to acceptable ranges and she was able to be started on a heparin drip, and as described above, her oxygen saturation is quite excellent using ECMO. 2. Hypotension. I believe this is somewhat related to blood loss as well as hemodynamic shifts rela shazia to catheter placements and CPR hypoxemia, potentially mediated in part by PEEP. I do not believe this is cardiogenic in nature, although troponins are pending at this time, and there is no evidence of sepsis. Her bronchoscopy did not reveal any signs of infection. Blood cultures, I believe, are pending at this time, but on preliminary report show no growth. In any case, when her pH was quite l ow in the 6.9 to 7.1 range, she was very hypotensive. Now that her pH is increased to 7.36, her Levo phed is off, epinephrine is at 0.2, and vasopressin at 0.04 with a mean arterial pressure of about 75 . Our plan is to leave those at that level for now, since she is finally showing some hemodynamic st ability in terms of transport. An echocardiogram was performed on 08/21 showing an ejection fraction of 67% with global hypercontractility, a normal sized right ventricle, normal left and right atrium, an RVSP of 46, no pericardial effusion, and no valvular heart disease. 3. Acute kidney injury. 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 She has had 2 full total plasma exchanges, one on 08/22 and one on 08/23. She has also had intermittent CRRT and is getting a run of hemodialysis for 2 hours at the time of this dictation and should be completed wi that prior to transport. Renal consult has been quite helpful throughout the course and has helpe d manage that piece quite a bit. She does have some hypokalemia, which is being managed by the hemod ialysis, and she has been on a bicarbonate drip, which is probably ready to come off prior to transpo rt. 4. Granulomatosis with polyangiitis. Her C ANCA titer is 1-512 and her PR3 is greater than 8, which is as high as the essay will check. P ANCA was negative and MPO was also negative. She did receive 500 mg of Solu-Medrol on the night of 08/21 to 08/22. She was increased to 1000 mg today. The plan was to do 3 days of total plasma exchange followed by her first dose of Rituxan, which should occur weekly probably for the following 4 weeks. She has not had a Rheumatology consult during this period of time. She did have a transbronchial lung biopsy that did not show evidence of vasculitis, but frantz dc has not had a renal biopsy, and we did not feel that was necessary at this time. I think there is strong evidence that this is the underlying cause of her misfortune, and the hope is to support her w ith ECMO while this is being treated in hopes that she will regain her lung function and be able to r eturn to not only standard mechanical ventilation but hopefully recover enough to be extubated. 5. Severe anemia. She had a fair amount of blood loss during the episode of DIC that occurred earli er today with her line exchanges. She did receive 1 unit of blood. Her hematocrit increased from 17 -20. She is getting 2 more units of blood at the time of this dictation, and a repeat hematocrit amie l be checked prior to her transport. 6. Leukocytosis of 21 drawn at about 7:40 this morning. I do not believe this is infectious in etio logy and more likely a stress reaction to the code that happened just before that. Notably, because at 4:15 a.m., her white count was 8.2. 7. Thrombocytopenia. Her platelets at 12:50 this afternoon were 91, again, from probably low level DIC, and repeat will be pending prior to transport. 8. Transaminitis. At 7:40 this morning, her AST was 89 and her ALT was 78. That was an acute rise immediately after her code. My expectation is that she will have shock liver, and these will probabl y continue to rise in the near future. She did have recent hepatitis B and C serology sent at [facility], which were also negative. DISCHARGE MEDICATIONS: Include Tylenol 650 mg per feeding tube p.r.n. Albuterol nebulizer q.2 hours p.r.n. Combigan eye drops, left eye, b.i.d. Epinephrine at 2 mcg/kg per minute. Lexapro 20 mg per tube daily. Fentanyl at 50 mcg/hour drip. Heparin drip. Insulin drip. Solu-Medrol at 1000 mg brennen ly. Norepinephrine, which is currently on hold. Zofran 4 mg IV q.4 hours. Oxycodone 5-10 mg per tu be q.3 hours p.r.n. Protonix 40 mg IV daily. Zosyn 2.25 g IV q.8 hours. Prednisolone acetate 1% dr ops each eye daily. Phenergan 6.25 to 12.5 mg IV q.6 hours p.r.n. Propofol drip. Bicarb with 150 m Eq/L at 150 mL per hour. Vasopressin 0.04 units. Vecuronium drip. DISCHARGE CONDITION: Critical, and she will require critical care transport. DISCHARGE DIAGNOSES: Include: 1. Granulomatosis with polyangiitis (Clarice's granulomatosis). 2. Acute hypoxic and hypercapnic respiratory failure. 3. Hypotension and shock. 4. Acute kidney injury. 5. Anemia. The accepting doctor at [facility] is Dr. Mac. /[id number]/MODL
[2017-08-23 19:31] VITALS: BP 119/77; PULSE 64; TEMP 94.5
== END 2017-08-23 21:05 | disposition short-term general hospital (02) | DRG 3 ==
LOC: F3E 15:40 → OBSVTOIN 16:03 → EEVIPCON 16:03 → F2N 08-21 19:49
PROVIDERS: ADMIT Internal Medicine; ATTEND Internal Medicine
PROC: 02HV33Z Insertion of Infusion Device into Superior Vena Cava, Percutaneous Approach (ICD-10-PCS; 2017-08-21)
PROC: 30233N1 Transfusion of Nonautologous Red Blood Cells into Peripheral Vein, Percutaneous Approach (ICD-10-PCS; 2017-08-21)
PROC: 0BBC8ZX Excision of Right Upper Lung Lobe, Via Natural or Artificial Opening Endoscopic, Diagnostic (ICD-10-PCS; principal; 2017-08-21 15:01)
PROC: 5A1945Z Respiratory Ventilation, 24-96 Consecutive Hours (ICD-10-PCS; 2017-08-22)
PROC: 0BH18EZ Insertion of Endotracheal Airway into Trachea, Via Natural or Artificial Opening Endoscopic (ICD-10-PCS; 2017-08-22)
PROC: 0B948ZZ Drainage of Right Upper Lobe Bronchus, Via Natural or Artificial Opening Endoscopic (ICD-10-PCS; 2017-08-22)
PROC: 30233L1 Transfusion of Nonautologous Fresh Plasma into Peripheral Vein, Percutaneous Approach (ICD-10-PCS; 2017-08-22)
PROC: [UNRECOGNIZED PROCEDURE] (2017-08-23)
PROC: 5A1D70Z Performance of Urinary Filtration, Intermittent, Less than 6 Hours Per Day (ICD-10-PCS; 2017-08-23)
DX: J18.9 Pneumonia, unspecified organism (principal); J96.01 Acute respiratory failure with hypoxia; I46.9 Cardiac arrest, cause unspecified; N17.9 Acute kidney failure, unspecified; M30.0 Polyarteritis nodosa; D62 Acute posthemorrhagic anemia; M31.30 Wegener's granulomatosis without renal involvement; G47.33 Obstructive sleep apnea (adult) (pediatric); E05.00 Thyrotoxicosis with diffuse goiter without thyrotoxic crisis or storm; I95.9 Hypotension, unspecified; D69.6 Thrombocytopenia, unspecified; R74.0 Nonspecific elevation of levels of transaminase and lactic acid dehydrogenase [LDH]; Z72.0 Tobacco use; J44.9 Chronic obstructive pulmonary disease, unspecified
CPT/HCPCS: 82595-90; 82947-QW; 83516-90; 83520-90; 86255-90; C1750; J0171; J0610; J0696; J1644; J1815; J1940; J2250; J2543; J2704; J2930; J3010; J7608; P9016; P9017; P9041